=== PATIENT | male | born 1940 | race Caucasian/White ===

== ENCOUNTER 2016-07-16 08:19 | Outpatient (CLI) | payer MEDICARE, OTHER | END 2016-07-16 08:20 | disposition home or self-care (01) | DX: I10 Essential (primary) hypertension (principal); E78.2 Mixed hyperlipidemia; E03.9 Hypothyroidism, unspecified; Z79.899 Other long term (current) drug therapy; C61 Malignant neoplasm of prostate ==

== ENCOUNTER 2016-07-25 20:53 | Outpatient (CLI) | payer MEDICARE, OTHER | END 2016-07-25 20:54 | disposition home or self-care (01) | DX: D64.9 Anemia, unspecified (principal); R73.09 Other abnormal glucose ==

== ENCOUNTER 2016-08-29 08:06 | Outpatient (CLI) | payer MEDICARE, OTHER | END 2016-08-29 08:07 | disposition home or self-care (01) | DX: E03.9 Hypothyroidism, unspecified (principal); Z79.899 Other long term (current) drug therapy ==

== ENCOUNTER 2017-01-03 08:40 | Outpatient (CLI) | payer MEDICARE, OTHER ==
[2017-01-03 11:45] LABS: BASOPHILS # (AUTO) 0.1 10^3/uL (0.0-0.1); BASOPHILS % (AUTO) 0.9 %; EOSINOPHILS # (AUTO) 0.1 10^3/uL (0.0-0.7); EOSINOPHILS % (AUTO) 1.4 %; HCT - HEMATOCRIT 42.7 % (42.0-52.0); HGB - HEMOGLOBIN 14.3 g/dL (14.0-18.0); LYMPHOCYTES # (AUTO) 2.2 10^3/uL (1.5-3.5); LYMPHOCYTES % (AUTO) 21.4 %; MEAN CORPUSCULAR HEMOGLOBIN 31.6 pg (27.0-31.0); MEAN CORPUSCULAR HGB CONC 33.4 g/dL (32.0-36.0); MEAN CORPUSCULAR VOLUME 94.6 fL (80.0-94.0); MEAN PLATELET VOLUME 9.2 fL (7.4-11.4); MONOCYTES # (AUTO) 0.7 10^3/uL (0.0-1.0); NEUTROPHILS % (AUTO) 69.3 %; NUCLEATED RED BLOOD CELLS AUTO 0.1 /100WBC; RED BLOOD COUNT 4.51 10^6/uL (4.70-6.10); UNCORRECTED WHITE BLOOD COUNT 10.1 x10^3/uL; WHITE BLOOD COUNT 10.1 x10^3/uL (4.8-10.8)
== END 2017-01-03 08:41 | disposition home or self-care (01) ==
LOC: LAB.R 08:40
PROVIDERS: ATTEND Internal Medicine
DX: D64.9 Anemia, unspecified (principal)
CPT/HCPCS: 85025

== ENCOUNTER 2017-07-16 08:20 | Outpatient (CLI) | payer MEDICARE, OTHER ==
[2017-07-16 12:50] LABS: BASOPHILS # (AUTO) 0.1 10^3/uL (0.0-0.1); BASOPHILS % (AUTO) 0.8 %; EOSINOPHILS # (AUTO) 0.2 10^3/uL (0.0-0.7); EOSINOPHILS % (AUTO) 2.3 %; HGB - HEMOGLOBIN 14.3 g/dL (14.0-18.0); LYMPHOCYTES # (AUTO) 2.5 10^3/uL (1.5-3.5); LYMPHOCYTES % (AUTO) 24.8 %; MEAN CORPUSCULAR HEMOGLOBIN 31.9 pg (27.0-31.0); MEAN CORPUSCULAR HGB CONC 33.8 g/dL (32.0-36.0); MEAN CORPUSCULAR VOLUME 94.3 fL (80.0-94.0); MEAN PLATELET VOLUME 8.7 fL (7.4-11.4); MONOCYTES # (AUTO) 0.7 10^3/uL (0.0-1.0); MONOCYTES % (AUTO) 7.2 %; NEUTROPHILS # (AUTO) 6.6 10^3/uL (1.5-6.6); NEUTROPHILS % (AUTO) 64.9 %; PLT - PLATELET COUNT 230 10^3/uL (130-450); RED BLOOD COUNT 4.47 10^6/uL (4.70-6.10); WHITE BLOOD COUNT 10.1 x10^3/uL (4.8-10.8)
[2017-07-16 13:14] LABS: ALBUMIN 3.9 g/dL (3.2-5.5); ALBUMIN/GLOBULIN RATIO 1.4 (1.0-2.2); ALKALINE PHOSPHATASE 106 IU/L (42-121); ALT ALANINE AMINOTRANSFERASE 20 IU/L (10-60); AST ASPARTATE AMINOTRANSFERASE 22 IU/L (10-42); BILIRUBIN,TOTAL 0.6 mg/dL (0.2-1.0); BUN - BLOOD UREA NITROGEN 21 mg/dL (6-20); CARBON DIOXIDE - CO2 27 mmol/L (21-32); CHLORIDE 104 mmol/L (101-111); CHOL/HDL RATIO 3.2 (<5.0); CHOLESTEROL 119 mg/dL; CREATININE 1.1 mg/dL (0.6-1.2); GFR - MDRD 65 (>89); GLUCOSE 117 mg/dL (70-100); HDL CHOLESTEROL 37 mg/dL; LDL CHOLESTEROL,CALCULATED 72 mg/dL; LDL/HDL RATIO 1.9 (<3.6); SODIUM 138 mmol/L (135-145); TOTAL PROTEIN 6.7 g/dL (6.7-8.2); VLDL CHOLESTEROL 10 mg/dL
== END 2017-07-16 08:21 | disposition home or self-care (01) ==
LOC: LAB.R 08:20
PROVIDERS: ATTEND Internal Medicine
DX: Z12.5 Encounter for screening for malignant neoplasm of prostate (principal); E03.9 Hypothyroidism, unspecified; E78.5 Hyperlipidemia, unspecified; I10 Essential (primary) hypertension; I73.9 Peripheral vascular disease, unspecified; D64.9 Anemia, unspecified
CPT/HCPCS: 80053; 80061; 84443; 85025; G0103; 83721; 84153

== ENCOUNTER 2018-01-02 08:30 | Outpatient (CLI) | payer MEDICARE, OTHER ==
[2018-01-02 18:37] LABS: HB2 TOTAL 14.7 g/dL; HEMOGLOBIN A1C 0.53 g/dL; HEMOGLOBIN A1C % 5.4 % (4.6-6.2)
== END 2018-01-02 08:31 | disposition home or self-care (01) ==
LOC: LAB.R 08:30
PROVIDERS: ATTEND Internal Medicine
DX: R73.9 Hyperglycemia, unspecified (principal)
CPT/HCPCS: 82947; 83036

== ENCOUNTER 2018-01-12 11:05 | Outpatient (CLI) | payer MEDICARE, OTHER ==
[2018-01-12 14:50] LABS: CALCIUM 9.1 mg/dL (8.5-10.3)
== END 2018-01-12 11:06 | disposition home or self-care (01) ==
LOC: LAB.R 11:05
PROVIDERS: ATTEND Internal Medicine
DX: I10 Essential (primary) hypertension (principal)
CPT/HCPCS: 80048

== ENCOUNTER 2018-02-09 10:52 | Emergency (ER) | payer MEDICARE, OTHER ==
[2018-02-09] MEDS ORDERED: TETANUS/DIPHTHERIA/PERTUSSIS 0.5 ML SYRINGE IM ONE (11:23)
--- NOTE | 2018-02-09 12:20 | CT Report ---
Reason: fall off ladder, hit head, pt on xarelto Procedure Date: 02/09/2018 Accession Number: [id number] / [id number] Procedure: CT - Head W/O CPT Code: FULL RESULT: EXAM: CT HEAD EXAM DATE: 02/09/2018 11:58 AM. CLINICAL HISTORY: Fall off ladder, hit head, pt on xarelto. COMPARISON: None. TECHNIQUE: Multiaxial CT images were obtained from the foramen magnum to the vertex. Reformats: Sagittal and coronal. IV contrast: None. In accordance with CT protocol optimization, one or more of the following dose reduction techniques were utilized for this exam: automated exposure control, adjustment of mA and/or KV based on patient size, or use of iterative reconstructive technique. FINDINGS: Parenchyma: No intraparenchymal hemorrhage. No evidence of mass, midline shift, or CT findings of acute infarction. Stearns-white differentiation is distinct. Diffuse chronic microangiopathic white matter changes are evident. Extraaxial Spaces: Normal for age. No subdural or epidural collections identified. Ventricles: The ventricles and cortical sulci are enlarged, consistent with age-related tissue loss. Sinuses and orbits: Imaged paranasal sinuses, orbits, and mastoids show no significant abnormality. Bones: No evidence of fracture or calvarial defect. Other: None. IMPRESSION: Generalized age-related cortical atrophic changes without evidence of acute intracranial abnormality. [facility]
[2018-02-09] MEDS ORDERED: LIDOCAINE 2%-EPI 1:100000 20 ML MDV SUBQ STA (12:42)
--- NOTE | 2018-02-09 12:51 | XRAY Report ---
Reason: fall off ladder, L shoulder pain Procedure Date: 02/09/2018 Accession Number: [id number] / [id number] Procedure: XR - Shoulder 3 View LT CPT Code: FULL RESULT: EXAM: LEFT SHOULDER RADIOGRAPHY EXAM DATE: 02/09/2018 12:09 PM. CLINICAL HISTORY: Fall off ladder, L shoulder pain. COMPARISON: None. TECHNIQUE: 3 views. FINDINGS: Bones: Cardiac generator variably overlies the left proximal humerus, left lateral ribs, and portion of the left infraspinous scapula on the different projections. Within this limitation, no definite acute fracture is demonstrated. Joints: No dislocation or subluxation. There is mild joint space narrowing at the glenohumeral joint and moderate joint space narrowing at the acromioclavicular joint with spurring. Soft tissues: No focal soft tissue swelling is demonstrated. Visualized portions of the left upper lung are clear. IMPRESSION: 1. No acute fracture or malalignment. 2. 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 RADIA
[2018-02-09] MEDS ORDERED: BACITRACIN OINT TOP ONE (13:05)
[2018-02-09] MEDS ORDERED: oxyCODONE 5 MG TABLET PO STA (13:08)
--- NOTE | 2018-02-09 13:10 | ED Physician Documentation ---
History of Present Illness - Stated complaint Stated Complaint: GLF/HEAD LAC - Chief complaint Chief Complaint: Laceration - History obtained from History obtained from: Patient - History of Present Illness Timing: Today Pain level max: 6 Pain level now: 5 Improved by: rest Worsened by: movement - Additonal information Additional information: Patient is a 77-year-old male who was up on a ladder today cleaning his gutters when he slipped and fell, striking his head. He is on Xarelto. He also complains of left shoulder pain. No loss of consciousness. No vomiting. No neck or back pain. No numbness or tingling. Review of Systems Ten Systems: 10 systems reviewed and negative Constitutional: denies: Fever, Chills Ears: denies: Drainage/discharge Nose: denies: Rhinorrhea / runny nose, Congestion Throat: denies: Sore throat Cardiac: denies: Chest pain / pressure Respiratory: denies: Dyspnea GI: denies: Abdominal Pain, Nausea, Vomiting, Diarrhea, Hematemesis : denies: Dysuria Skin: denies: Rash Musculoskeletal: reports: Extremity pain (L shoulder pain). denies: Neck pain, Back pain Neurologic: reports: Head injury (forehead laceration). denies: Focal weakness, Numbness, Confused, Altered mental status, LOC PD PAST MEDICAL HISTORY - Past Medical History Past Medical History: Yes Cardiovascular: Hypertension - Past Surgical History Past Surgical History: Yes - Present Medications Home Medications: Ambulatory Orders Medication Instructions Recorded Confirmed Ascorbic Acid [Vitamin C] 02/09/18 Atorvastatin Calcium 20 mg PO DAILY 02/09/18 02/09/18 Glucosamine Sulfate Dipot Chlr 02/09/18 [Glucosamine Sulfate] Levothyroxine [Synthroid] 50 mcg PO DAILY 02/09/18 02/09/18 Lisinopril 5 mg PO DAILY 02/09/18 02/09/18 Multivitamin [Multiple Vitamins] 02/09/18 Oxycodone HCl/Acetaminophen 1 - 2 each PO Q6H PRN #10 tablet 02/09/18 [Percocet 5-325 mg Tablet] Rivaroxaban [Xarelto] 20 mg PO DAILY 02/09/18 02/09/18 - Allergies Allergies/Adverse Reactions: Allergies Allergy/AdvReac Type Severity Reaction Status Date / Time No Known Drug Allergies Allergy Verified 02/09/18 11:03 - Living Situation Living Situation: reports: With family Living Arrangement: reports: At home - Social History Does the pt have substance abuse?: No - Family History Family history: reports: Non contributory - Immunizations Immunizations are current?: No PD ED PE NORMAL - Vitals Vital signs reviewed: Yes - General General: Alert and oriented X 3, No acute distress, Well developed/nourished - HEENT HEENT: PERRL, Ears normal, Moist mucous membranes, Pharynx benign, Other (stellate forehead laceration, 6cm, irregular. galea intact. ) - Neck Neck: Supple, no meningeal sign, No bony TTP (No step-off or deformity) - Cardiac Cardiac: RRR - Respiratory Respiratory: No respiratory distress, Clear bilaterally - Abdomen Abdomen: Soft, Non tender, Non distended - Back Back: No spinal TTP - Derm Derm: Warm and dry - Extremities Extremities: No deformity, Other (TTP over the L shoulder, FROM, but with pain. NVI including axillary nerve.) - Neuro Neuro: Alert and oriented X 3 - Psych Psych: Normal mood, Normal affect Results - Vitals Vitals: Vital Signs - 24 hr 02/09/18 10:57 Temperature 36.2 C L Heart Rate 66 Respiratory 16 Rate Blood Pressure 191/82 H O2 Saturation 98 Oxygen O2 Source Room air - Rads (name of study) Head CT Radiology: Prelim report reviewed, EMP read contemporaneously, See rad report (No acute intracranial abnormality) Left shoulder x-ray Radiology: Prelim report reviewed, EMP read contemporaneously, See rad report (No acute abnormality) Procedures - Laceration (location) Forehead Length in cm: 6 Wound type: Stellate, Irregular, Into muscle, Clean Neurovascular status: Sensory intact, Motor intact, Vascular intact Anesthesia: Lidocaine 2% with epi Wound Preparation: Irrigated copiously NS, Wound explored, To the base. No: FB identified, FB removed Skin layer closure: Nylon, Interrupted, Size #-0 - enter number (4) Other: Patient tolerated well, No complications, Neurovascular intact, Dressing applied, Tetanus booster given (Tdap) Complexity: Simple PD MEDICAL DECISION MAKING - ED course Complexity details: reviewed results, re-evaluated patient, considered differential, d/w patient ED course: Patient is a 77-year-old male who fell off of a ladder today striking his head. Has a forehead laceration was repaired. No acute findings on head CT. Warnings of infection and instructions on wound care given at bedside. Also counseled on how to minimize scarring. No acute findings on left shoulder x- ray. Will place on pain medication for home and follow-up closely with his doctor. Patient counseled regarding signs and symptoms for which I believe and urgent re-evaluation would be necessary. Patient with good understanding of and agreement to plan and is comfortable going home at this time This document was made in part using voice recognition software. While efforts are made to proofread this document, sound alike and grammatical errors may occur. Departure - Departure Disposition: Home, Self Care Clinical Impression: Forehead laceration Qualifiers: Encounter type: initial encounter Qualified Code(s): S01.81XA - Laceration without foreign body of other part of head, initial encounter Head injury Qualifiers: Encounter type: initial encounter Qualified Code(s): S09.90XA - Unspecified injury of head, initial encounter Left shoulder strain Qualifiers: Encounter type: initial encounter Qualified Code(s): S46.912A - Strain of unspe cified muscle, fascia and tendon at shoulder and upper arm level, left arm, initial encounter Condition: Good Instructions: ED Head Injury Closed, ED Laceration Facial Sutr Tape Follow-Up: Frederick Lester MD [Primary Care Provider] - Within 1 week Prescriptions: Oxycodone HCl/Acetaminophen [Percocet 5-325 mg Tablet] 1 - 2 each PO Q6H PRN #10 tablet PRN Reason: pain Comments: Keep the wound clean. Return if you worsen. The sutures should be removed in about 10-14 days with your doctor. Return for redness, swelling or drainage from the wound. Do not drink alcohol or drive while on narcotic pain medicine. Note that many narcotic pain relievers also contain tylenol/acetaminophen. Please ensure that your total dose of acetaminophen from all sources does not exceed 3 grams (3000mg) per day. You may constipated on this medication, take a stool softener such as "Colace" twice a day while you are on it. Also recommend a lyxo-les-ohycjcw laxative such as senna or MiraLAX any day that you do not have a bowel movement. If you received narcotic pain medication in the emergency department, do not drive or operate machinery for the next 24 hours. Discharge Date/Time: 02/09/18 13:25
[2018-02-09 13:24] VITALS: BP 170/80
== END 2018-02-09 13:25 | disposition home or self-care (01) ==
LOC: ED 10:52
DX: S01.81XA Laceration without foreign body of other part of head, initial encounter (principal); S09.90XA Unspecified injury of head, initial encounter; S46.912A Strain of unspecified muscle, fascia and tendon at shoulder and upper arm level, left arm, initial encounter; W11.XXXA Fall on and from ladder, initial encounter; Y93.H9 Activity, other involving exterior property and land maintenance, building and construction; Y92.007 Garden or yard of unspecified non-institutional (private) residence as the place of occurrence of the external cause; Z23 Encounter for immunization; I10 Essential (primary) hypertension; Z79.01 Long term (current) use of anticoagulants
CPT/HCPCS: 70450; 99283

== ENCOUNTER 2018-02-09 15:16 | Emergency (ER) | payer MEDICARE, OTHER ==
[2018-02-09 15:24] VITALS: BP 155/74
--- NOTE | 2018-02-09 15:40 | ED Physician Documentation ---
History of Present Illness - Stated complaint Stated Complaint: FOREHEAD LAC - Chief complaint Chief Complaint: General - History obtained from History obtained from: Patient - History of Present Illness Timing: Today Pain level max: 5 Pain level now: 0 - Additonal information Additional information: Patient seen here earlier today after a fall off of a ladder. Has a forehead laceration that is still slightly oozing blood. Review of Systems Neurologic: denies: Syncope PD PAST MEDICAL HISTORY - Past Surgical History Past Surgical History: Yes - Present Medications Home Medications: Ambulatory Orders Medication Instructions Recorded Confirmed Ascorbic Acid [Vitamin C] 02/09/18 Atorvastatin Calcium 20 mg PO DAILY 02/09/18 02/09/18 Glucosamine Sulfate Dipot Chlr 02/09/18 [Glucosamine Sulfate] Levothyroxine [Synthroid] 50 mcg PO DAILY 02/09/18 02/09/18 Lisinopril 5 mg PO DAILY 02/09/18 02/09/18 Multivitamin [Multiple Vitamins] 02/09/18 Oxycodone HCl/Acetaminophen 1 - 2 each PO Q6H PRN #10 tablet 02/09/18 [Percocet 5-325 mg Tablet] Rivaroxaban [Xarelto] 20 mg PO DAILY 02/09/18 02/09/18 - Allergies Allergies/Adverse Reactions: Allergies Allergy/AdvReac Type Severity Reaction Status Date / Time No Known Drug Allergies Allergy Verified 02/09/18 11:03 - Social History Does the pt smoke?: No Smoking Status: Never smoker Does the pt drink ETOH?: No Does the pt have substance abuse?: No - Immunizations Immunizations: TDAP >10years/unknown PD ED PE NORMAL - Vitals Vital signs reviewed: Yes - General General: Alert and oriented X 3, No acute distress - HEENT HEENT: Other (Slight use from the forehead laceration) - Derm Derm: Warm and dry - Neuro Neuro: Alert and oriented X 3 Results - Vitals Vitals: Vital Signs - 24 hr 02/09/18 15:22 Temperature 36.7 C Heart Rate 66 Respiratory 16 Rate Blood Pressure 155/74 H O2 Saturation 99 Oxygen O2 Source Room air PD MEDICAL DECISION MAKING - ED course Complexity details: considered differential, d/w patient ED course: A new dressing was applied with Coban to hold pressure. Appears to have a slight is from the Xarelto he is taking. We will continue the course of treatment as previously described in today's earlier note. This document was made in part using voice recognition software. While efforts are made to proofread this document, sound alike and grammatical errors may occur. Departure - Departure Disposition: 01 Home, Self Care Clinical Impression: Forehead laceration Qualifiers: Encounter type: initial encounter Qualified Code(s): S01.81XA - Laceration without foreign body of other part of head, initial encounter Condition: Good Comments: Follow the instructions from your prior visit. You can remove the dressing after 4-6 hours today.
== END 2018-02-09 15:46 | disposition home or self-care (01) ==
LOC: ED 15:16
DX: S01.81XA Laceration without foreign body of other part of head, initial encounter (principal); S09.90XA Unspecified injury of head, initial encounter; S46.912A Strain of unspecified muscle, fascia and tendon at shoulder and upper arm level, left arm, initial encounter; W11.XXXA Fall on and from ladder, initial encounter; Y93.H9 Activity, other involving exterior property and land maintenance, building and construction; Y92.007 Garden or yard of unspecified non-institutional (private) residence as the place of occurrence of the external cause; Z23 Encounter for immunization; I10 Essential (primary) hypertension; Z79.01 Long term (current) use of anticoagulants
CPT/HCPCS: 12014; 70450; 73030; 90471; 90715; 99283; A9270

== ENCOUNTER 2018-07-09 08:49 | Outpatient (CLI) | payer MEDICARE, OTHER ==
[2018-07-09 09:24] LABS: ALBUMIN/GLOBULIN RATIO 1.3 (1.0-2.2); ALKALINE PHOSPHATASE 105 IU/L (42-121); ALT ALANINE AMINOTRANSFERASE 18 IU/L (10-60); AST ASPARTATE AMINOTRANSFERASE 22 IU/L (10-42); BILIRUBIN,TOTAL 1.3 mg/dL (0.2-1.0); BUN - BLOOD UREA NITROGEN 24 mg/dL (6-20); CALCIUM 8.9 mg/dL (8.5-10.3); CARBON DIOXIDE - CO2 28 mmol/L (21-32); CHLORIDE 99 mmol/L (101-111); CHOL/HDL RATIO 3.5 (<5.0); CHOLESTEROL 128 mg/dL; CREATININE 1.1 mg/dL (0.6-1.2); GFR - MDRD 65 (>89); GLUCOSE 132 mg/dL (70-100); HDL CHOLESTEROL 37 mg/dL; LDL CHOLESTEROL,CALCULATED 76 mg/dL; LDL/HDL RATIO 2.1 (<3.6); SODIUM 135 mmol/L (135-145); TOTAL PROTEIN 7.2 g/dL (6.7-8.2); VLDL CHOLESTEROL 15 mg/dL
[2018-07-09 10:00] LABS: PSA TOTAL < 0.008 ng/mL (0.000-2.000)
[2018-07-09 10:25] LABS: HB2 TOTAL 15.2 g/dL; HEMOGLOBIN A1C 0.58 g/dL; HEMOGLOBIN A1C % 5.6 % (4.6-6.2)
== END 2018-07-09 08:50 | disposition home or self-care (01) ==
LOC: LAB 08:49
PROVIDERS: ATTEND Internal Medicine
DX: E78.5 Hyperlipidemia, unspecified (principal); R73.9 Hyperglycemia, unspecified; C61 Malignant neoplasm of prostate; E03.9 Hypothyroidism, unspecified
CPT/HCPCS: 36415; 80053; 80061; 83036; 83721; 84153; 84154; 84443

== ENCOUNTER 2020-04-25 11:31 | Outpatient (CLI) | payer MEDICARE, OTHER ==
[2020-04-25 18:07] LABS: BASOPHILS # (AUTO) 0.1 10^3/uL (0.0-0.1); BASOPHILS % (AUTO) 0.7 %; EOSINOPHILS # (AUTO) 0.2 10^3/uL (0.0-0.7); EOSINOPHILS % (AUTO) 1.7 %; HCT - HEMATOCRIT 44.4 % (42.0-52.0); HGB - HEMOGLOBIN 14.1 g/dL (14.0-18.0); LYMPHOCYTES # (AUTO) 2.5 10^3/uL (1.5-3.5); LYMPHOCYTES % (AUTO) 26.6 %; MEAN CORPUSCULAR HEMOGLOBIN 31.4 pg (27.0-31.0); MEAN CORPUSCULAR HGB CONC 31.8 g/dL (32.0-36.0); MEAN CORPUSCULAR VOLUME 98.9 fL (80.0-94.0); MEAN PLATELET VOLUME 10.5 fL (7.4-11.4); MONOCYTES # (AUTO) 0.6 10^3/uL (0.0-1.0); MONOCYTES % (AUTO) 6.1 %; NEUTROPHILS # (AUTO) 6.1 10^3/uL (1.5-6.6); NEUTROPHILS % (AUTO) 64.7 %; PLT - PLATELET COUNT 247 10^3/uL (130-450); RED BLOOD COUNT 4.49 10^6/uL (4.70-6.10); RED CELL DISTRIBUTION WIDTH 12.5 % (12.0-15.0); WHITE BLOOD COUNT 9.4 x10^3/uL (4.8-10.8)
[2020-04-25 18:19] LABS: ALBUMIN 4.2 g/dL (3.2-5.5); ALBUMIN/GLOBULIN RATIO 1.4 (1.0-2.2); ALKALINE PHOSPHATASE 95 IU/L (42-121); ALT ALANINE AMINOTRANSFERASE 21 IU/L (10-60); AST ASPARTATE AMINOTRANSFERASE 19 IU/L (10-42); BILIRUBIN,TOTAL 0.8 mg/dL (0.2-1.0); BUN - BLOOD UREA NITROGEN 20 mg/dL (6-20); CALCIUM 9.7 mg/dL (8.5-10.3); CARBON DIOXIDE - CO2 29 mmol/L (21-32); CHLORIDE 104 mmol/L (101-111); CHOL/HDL RATIO 3.4 (<5.0); CHOLESTEROL 129 mg/dL; CREATININE 1.1 mg/dL (0.6-1.2); GFR - MDRD 65 (>89); GLUCOSE 100 mg/dL (70-100); HDL CHOLESTEROL 38 mg/dL; LDL CHOLESTEROL,CALCULATED 73 mg/dL; LDL/HDL RATIO 1.9 (<3.6); POTASSIUM 4.6 mmol/L (3.5-5.0); SODIUM 142 mmol/L (135-145); TOTAL PROTEIN 7.2 g/dL (6.7-8.2); TRIGLYCERIDES 91 mg/dL; VLDL CHOLESTEROL 18 mg/dL
[2020-04-25 18:30] LABS: THYROID STIMULATING HORMONE 3.48 uIU/mL (0.34-5.60)
[2020-04-25 18:32] LABS: FREE T3 3.18 pg/mL (2.5-3.9)
[2020-04-25 18:33] LABS: FREE T4 (FREE THYROXINE) 1.19 ng/dL (0.58-1.64)
[2020-04-25 19:19] LABS: ESTIMATED AVERAGE GLUCOSE 123 mg/dL (70-100); HEMOGLOBIN A1c% 5.9 % (4.27-6.07)
== END 2020-04-25 23:59 | disposition home or self-care (01) ==
LOC: LAB.WCP 11:31
PROVIDERS: ATTEND Family Medicine
DX: I48.0 Paroxysmal atrial fibrillation (principal); R73.01 Impaired fasting glucose; E03.9 Hypothyroidism, unspecified; J44.9 Chronic obstructive pulmonary disease, unspecified; E78.5 Hyperlipidemia, unspecified; I10 Essential (primary) hypertension; F17.200 Nicotine dependence, unspecified, uncomplicated; I73.9 Peripheral vascular disease, unspecified
CPT/HCPCS: 36415; 80053; 80061; 83036; 83721; 84439; 84443; 84481; 85025

== ENCOUNTER 2020-11-08 11:47 | Outpatient (CLI) | payer MEDICARE, OTHER ==
[2020-11-08 18:00] LABS: BASOPHILS # (AUTO) 0.1 10^3/uL (0.0-0.1); BASOPHILS % (AUTO) 0.6 %; EOSINOPHILS # (AUTO) 0.2 10^3/uL (0.0-0.7); EOSINOPHILS % (AUTO) 1.7 %; HCT - HEMATOCRIT 45.4 % (42.0-52.0); LYMPHOCYTES # (AUTO) 2.6 10^3/uL (1.5-3.5); LYMPHOCYTES % (AUTO) 27.2 %; MEAN CORPUSCULAR HEMOGLOBIN 32.3 pg (27.0-31.0); MEAN CORPUSCULAR VOLUME 97.8 fL (80.0-94.0); MEAN PLATELET VOLUME 10.6 fL (7.4-11.4); MONOCYTES # (AUTO) 0.7 10^3/uL (0.0-1.0); MONOCYTES % (AUTO) 6.9 %; NEUTROPHILS # (AUTO) 6.1 10^3/uL (1.5-6.6); NEUTROPHILS % (AUTO) 63.4 %; PLT - PLATELET COUNT 248 10^3/uL (130-450); RED BLOOD COUNT 4.64 10^6/uL (4.70-6.10); RED CELL DISTRIBUTION WIDTH 12.5 % (12.0-15.0); WHITE BLOOD COUNT 9.6 x10^3/uL (4.8-10.8)
[2020-11-08 18:12] LABS: ALBUMIN 4.3 g/dL (3.2-5.5); ALBUMIN/GLOBULIN RATIO 1.3 (1.0-2.2); BILIRUBIN,TOTAL 1.3 mg/dL (0.2-1.0); CALCIUM 9.5 mg/dL (8.5-10.3); CREATININE 1.1 mg/dL (0.6-1.2); POTASSIUM 4.8 mmol/L (3.5-5.0); TOTAL PROTEIN 7.5 g/dL (6.7-8.2)
[2020-11-08 18:24] LABS: THYROID STIMULATING HORMONE 3.31 uIU/mL (0.34-5.60)
[2020-11-08 19:54] LABS: ESTIMATED AVERAGE GLUCOSE 117 mg/dL (70-100); HEMOGLOBIN A1c% 5.7 % (4.27-6.07)
== END 2020-11-08 23:59 | disposition home or self-care (01) ==
LOC: LAB.WCP 11:47
PROVIDERS: ATTEND Family Medicine
DX: R73.9 Hyperglycemia, unspecified (principal); R63.4 Abnormal weight loss
CPT/HCPCS: 36415; 80053; 83036; 84443; 85025

== ENCOUNTER 2021-06-30 11:05 | Outpatient (CLI) | payer MEDICARE, OTHER ==
--- NOTE | 2021-06-30 13:50 | CT Report ---
PROCEDURE: HEAD WO INDICATIONS: TREMOR, DOUBLE VISION TECHNIQUE: Noncontrast 4.5 mm thick angled axial sections acquired from the foramen magnum to the vertex. For r adiation dose reduction, the following was used: automated exposure control, adjustment of mA and/or kV according to patient size. COMPARISON: None. FINDINGS: Image quality: Excellent. CSF spaces: Basal cisterns are patent. No extra-axial fluid collections. Ventricles are normal in size and shape. Brain: No midline shift. No intracranial masses or hemorrhage. Age-related volume loss and small v essel ischemic change. Stearns-white matter interface is normal. Skull and face: Calvarium and visualized facial bones are intact, without suspicious lesions. Sinuses: Dependent soft tissue in the left maxillary sinus. There is also mucosal thickening present in the right sphenoid sinus. There is patchy ethmoid disease. IMPRESSION: 1. No evidence acute stroke, hemorrhage, or mass. 2. Age-related changes. 3. Sinus disease, mostly chronic. Reviewed by: Jayme Garrett MD on 06/30/2021 12:49 PM [facility] Approved by: Jayme Garrett MD on 06/30/2021 12:49 PM [facility] Station ID: [id number]
== END 2021-06-30 11:06 | disposition home or self-care (01) ==
LOC: DI 11:05
PROVIDERS: ATTEND Family Medicine
DX: R25.1 Tremor, unspecified (principal); R27.9 Unspecified lack of coordination; H53.2 Diplopia; J32.0 Chronic maxillary sinusitis; J32.3 Chronic sphenoidal sinusitis; J32.2 Chronic ethmoidal sinusitis

== ENCOUNTER 2021-09-25 11:57 | Outpatient (CLI) | payer MEDICARE, OTHER ==
[2021-09-25 17:43] LABS: BASOPHILS # (AUTO) 0.1 10^3/uL (0.0-0.1); BASOPHILS % (AUTO) 0.6 %; EOSINOPHILS # (AUTO) 0.2 10^3/uL (0.0-0.7); EOSINOPHILS % (AUTO) 1.7 %; HCT - HEMATOCRIT 44.5 % (42.0-52.0); HGB - HEMOGLOBIN 14.6 g/dL (14.0-18.0); LYMPHOCYTES # (AUTO) 2.7 10^3/uL (1.5-3.5); LYMPHOCYTES % (AUTO) 28.9 %; MEAN CORPUSCULAR HEMOGLOBIN 31.6 pg (27.0-31.0); MEAN CORPUSCULAR HGB CONC 32.8 g/dL (32.0-36.0); MEAN CORPUSCULAR VOLUME 96.3 fL (80.0-94.0); MEAN PLATELET VOLUME 10.7 fL (7.4-11.4); MONOCYTES # (AUTO) 0.7 10^3/uL (0.0-1.0); MONOCYTES % (AUTO) 7.5 %; NEUTROPHILS # (AUTO) 5.7 10^3/uL (1.5-6.6); NEUTROPHILS % (AUTO) 61.1 %; PLT - PLATELET COUNT 233 10^3/uL (130-450); RED BLOOD COUNT 4.62 10^6/uL (4.70-6.10); RED CELL DISTRIBUTION WIDTH 12.2 % (12.0-15.0); WHITE BLOOD COUNT 9.4 x10^3/uL (4.8-10.8)
[2021-09-25 18:05] LABS: ALBUMIN 4.1 g/dL (3.2-5.5); ALBUMIN/GLOBULIN RATIO 1.2 (1.0-2.2); ALKALINE PHOSPHATASE 93 IU/L (42-121); ALT ALANINE AMINOTRANSFERASE 25 IU/L (10-60); AST ASPARTATE AMINOTRANSFERASE 25 IU/L (10-42); BILIRUBIN,TOTAL 1.5 mg/dL (0.2-1.0); BUN - BLOOD UREA NITROGEN 28 mg/dL (6-20); CALCIUM 9.8 mg/dL (8.5-10.3); CARBON DIOXIDE - CO2 29 mmol/L (21-32); CHLORIDE 102 mmol/L (101-111); CHOL/HDL RATIO 3.3 (<5.0); CHOLESTEROL 139 mg/dL; CREATININE 1.3 mg/dL (0.6-1.2); GFR - MDRD 53 (>89); GLUCOSE 113 mg/dL (70-100); HDL CHOLESTEROL 42 mg/dL; LDL CHOLESTEROL,CALCULATED 84 mg/dL; POTASSIUM 4.7 mmol/L (3.5-5.0); SODIUM 139 mmol/L (135-145); TOTAL PROTEIN 7.4 g/dL (6.7-8.2); TRIGLYCERIDES 66 mg/dL; VLDL CHOLESTEROL 13 mg/dL
[2021-09-25 18:13] LABS: THYROID STIMULATING HORMONE 5.28 uIU/mL (0.34-5.60)
== END 2021-09-25 11:58 | disposition home or self-care (01) ==
LOC: LAB.N 11:57
PROVIDERS: ATTEND Family Medicine
DX: I10 Essential (primary) hypertension (principal); R25.1 Tremor, unspecified; R26.81 Unsteadiness on feet; H53.2 Diplopia; R73.9 Hyperglycemia, unspecified; I48.0 Paroxysmal atrial fibrillation; E03.9 Hypothyroidism, unspecified
CPT/HCPCS: 36415; 80053; 80061; 83721; 84443; 85025

== ENCOUNTER 2022-04-02 12:04 | Outpatient (CLI) | payer MEDICARE, OTHER ==
[2022-04-02 18:08] LABS: BASOPHILS # (AUTO) 0.1 10^3/uL (0.0-0.1); BASOPHILS % (AUTO) 0.7 %; EOSINOPHILS # (AUTO) 0.2 10^3/uL (0.0-0.7); HCT - HEMATOCRIT 45.5 % (42.0-52.0); HGB - HEMOGLOBIN 14.4 g/dL (14.0-18.0); LYMPHOCYTES % (AUTO) 25.1 %; MEAN CORPUSCULAR HEMOGLOBIN 30.6 pg (27.0-31.0); MEAN CORPUSCULAR HGB CONC 31.6 g/dL (32.0-36.0); MEAN CORPUSCULAR VOLUME 96.6 fL (80.0-94.0); MEAN PLATELET VOLUME 10.9 fL (7.4-11.4); MONOCYTES # (AUTO) 0.6 10^3/uL (0.0-1.0); MONOCYTES % (AUTO) 7.7 %; NEUTROPHILS # (AUTO) 5.2 10^3/uL (1.5-6.6); NEUTROPHILS % (AUTO) 64.3 %; PLT - PLATELET COUNT 240 10^3/uL (130-450); RED BLOOD COUNT 4.71 10^6/uL (4.70-6.10); RED CELL DISTRIBUTION WIDTH 12.1 % (12.0-15.0); WHITE BLOOD COUNT 8.1 x10^3/uL (4.8-10.8)
[2022-04-02 18:16] LABS: ALBUMIN 3.9 g/dL (3.2-5.5); ALBUMIN/GLOBULIN RATIO 1.1 (1.0-2.2); ALKALINE PHOSPHATASE 108 IU/L (42-121); ALT ALANINE AMINOTRANSFERASE 21 IU/L (10-60); AST ASPARTATE AMINOTRANSFERASE 23 IU/L (10-42); BILIRUBIN,TOTAL 1.3 mg/dL (0.2-1.0); BUN - BLOOD UREA NITROGEN 19 mg/dL (6-20); CALCIUM 9.7 mg/dL (8.5-10.3); CARBON DIOXIDE - CO2 32 mmol/L (21-32); CHLORIDE 101 mmol/L (101-111); CHOLESTEROL 121 mg/dL; CREATININE 1.2 mg/dL (0.6-1.2); GFR - MDRD 58 (>89); GLUCOSE 110 mg/dL (70-100); HDL CHOLESTEROL 41 mg/dL; LDL CHOLESTEROL,CALCULATED 69 mg/dL; LDL/HDL RATIO 1.7 (<3.6); SODIUM 140 mmol/L (135-145); TOTAL PROTEIN 7.6 g/dL (6.7-8.2); TRIGLYCERIDES 56 mg/dL; VLDL CHOLESTEROL 11 mg/dL
[2022-04-02 18:26] LABS: THYROID STIMULATING HORMONE 5.13 uIU/mL (0.34-5.60)
[2022-04-02 19:55] LABS: ESTIMATED AVERAGE GLUCOSE 114 mg/dL (70-100); HEMOGLOBIN A1c% 5.6 % (4.27-6.07)
== END 2022-04-02 12:05 | disposition home or self-care (01) ==
LOC: LAB.N 12:04
PROVIDERS: ATTEND Family Medicine
DX: I10 Essential (primary) hypertension (principal); I49.5 Sick sinus syndrome; R73.9 Hyperglycemia, unspecified; I48.0 Paroxysmal atrial fibrillation; E03.9 Hypothyroidism, unspecified; J44.9 Chronic obstructive pulmonary disease, unspecified; G25.0 Essential tremor; E78.5 Hyperlipidemia, unspecified; F17.200 Nicotine dependence, unspecified, uncomplicated
CPT/HCPCS: 36415; 80053; 80061; 83036; 83721; 84443; 85025

== ENCOUNTER 2023-03-28 12:58 | Outpatient (CLI) | payer MEDICARE, OTHER ==
[2023-03-28 18:01] LABS: BASOPHILS # (AUTO) 0.1 10^3/uL (0.0-0.1); BASOPHILS % (AUTO) 0.7 %; EOSINOPHILS # (AUTO) 0.1 10^3/uL (0.0-0.7); EOSINOPHILS % (AUTO) 0.6 %; HCT - HEMATOCRIT 39.8 % (42.0-52.0); HGB - HEMOGLOBIN 12.5 g/dL (14.0-18.0); LYMPHOCYTES # (AUTO) 1.8 10^3/uL (1.5-3.5); LYMPHOCYTES % (AUTO) 21.7 %; MEAN CORPUSCULAR HEMOGLOBIN 31.1 pg (27.0-31.0); MEAN CORPUSCULAR HGB CONC 31.4 g/dL (32.0-36.0); MEAN PLATELET VOLUME 11.1 fL (7.4-11.4); MONOCYTES # (AUTO) 0.6 10^3/uL (0.0-1.0); MONOCYTES % (AUTO) 6.5 %; NEUTROPHILS % (AUTO) 70.4 %; PLT - PLATELET COUNT 210 10^3/uL (130-450); RED BLOOD COUNT 4.02 10^6/uL (4.70-6.10); RED CELL DISTRIBUTION WIDTH 12.5 % (12.0-15.0); WHITE BLOOD COUNT 8.5 x10^3/uL (4.8-10.8)
[2023-03-28 18:04] LABS: SLIDE REVIEW? Indicated
[2023-03-28 18:13] LABS: ALBUMIN 4.1 g/dL (3.2-5.5); CHOL/HDL RATIO 3.6 (<5.0); CHOLESTEROL 140 mg/dL; ESTIMATED AVERAGE GLUCOSE 111 mg/dL (70-100); HDL CHOLESTEROL 39 mg/dL; HEMOGLOBIN A1c% 5.5 % (4.27-6.07); LDL CHOLESTEROL,CALCULATED 83 mg/dL; LDL/HDL RATIO 2.1 (<3.6); TRIGLYCERIDES 91 mg/dL (48-352); VLDL CHOLESTEROL 18 mg/dL
[2023-03-28 18:21] LABS: POTASSIUM 4.7 mmol/L (3.5-4.5)
[2023-03-28 18:24] LABS: ALBUMIN/GLOBULIN RATIO 1.7 (1.0-2.2); ALKALINE PHOSPHATASE 94 IU/L (42-121); ALT ALANINE AMINOTRANSFERASE 9 IU/L (10-60); AST ASPARTATE AMINOTRANSFERASE 16 IU/L (10-42); BILIRUBIN,TOTAL 0.8 mg/dL (0.2-1.0); BUN - BLOOD UREA NITROGEN 25 mg/dL (6-20); CALCIUM 9.6 mg/dL (8.5-10.3); CARBON DIOXIDE - CO2 29 mmol/L (21-32); CHLORIDE 108 mmol/L (101-111); GFR - MDRD 72 (>89); GLUCOSE 109 mg/dL (74-104); SODIUM 143 mmol/L (135-145); THYROID STIMULATING HORMONE 5.39 uIU/mL (0.34-5.60); TOTAL PROTEIN 6.5 g/dL (6.4-8.9)
[2023-03-28 19:04] LABS: RBC MORPHOLOGY (MULTIPLE) NORMAL APPEARANCE (NORMAL)
[2023-03-28 19:05] LABS: PLATELET ESTIMATE, MANUAL NORMAL (130-450,000) (NORMAL); PLATELET MORPHOLOGY 1+ GIANT PLATELETS (NORMAL)
== END 2023-03-28 12:59 | disposition home or self-care (01) ==
LOC: LAB.N 12:58
PROVIDERS: ATTEND Family Medicine
DX: E03.9 Hypothyroidism, unspecified (principal); H50.332 Intermittent monocular exotropia, left eye; R26.81 Unsteadiness on feet; H53.2 Diplopia; R73.9 Hyperglycemia, unspecified
CPT/HCPCS: 36415; 80053; 80061; 83036; 83721; 84443; 85025

== ENCOUNTER 2023-05-04 13:19 | Outpatient (CLI) | payer MEDICARE, OTHER | END 2023-05-04 23:59 | disposition left against medical advice (07) | LOC: EMS 13:19 | DX: S00.81XA Abrasion of other part of head, initial encounter (principal); W18.39XA Other fall on same level, initial encounter; Y92.008 Other place in unspecified non-institutional (private) residence as the place of occurrence of the external cause; Z79.01 Long term (current) use of anticoagulants ==

== ENCOUNTER 2023-06-26 14:47 | Outpatient (CLI) | payer MEDICARE, OTHER ==
[2023-06-26 15:12] LABS: BASOPHILS # (AUTO) 0.1 10^3/uL (0.0-0.1); BASOPHILS % (AUTO) 0.8 %; EOSINOPHILS # (AUTO) 0.1 10^3/uL (0.0-0.7); EOSINOPHILS % (AUTO) 0.9 %; HCT - HEMATOCRIT 38.6 % (42.0-52.0); HGB - HEMOGLOBIN 12.5 g/dL (14.0-18.0); LYMPHOCYTES # (AUTO) 1.9 10^3/uL (1.5-3.5); LYMPHOCYTES % (AUTO) 21.5 %; MEAN CORPUSCULAR HEMOGLOBIN 31.7 pg (27.0-31.0); MEAN CORPUSCULAR HGB CONC 32.4 g/dL (32.0-36.0); MEAN PLATELET VOLUME 9.5 fL (7.4-11.4); MONOCYTES # (AUTO) 0.6 10^3/uL (0.0-1.0); MONOCYTES % (AUTO) 7.4 %; NEUTROPHILS % (AUTO) 69.1 %; PLT - PLATELET COUNT 286 10^3/uL (130-450); RED BLOOD COUNT 3.94 10^6/uL (4.70-6.10); RED CELL DISTRIBUTION WIDTH 12.6 % (12.0-15.0); WHITE BLOOD COUNT 8.7 x10^3/uL (4.8-10.8)
[2023-06-26 16:06] LABS: THYROID STIMULATING HORMONE 7.23 uIU/mL (0.34-5.60)
[2023-06-26 16:10] LABS: CALCIUM 9.5 mg/dL (8.5-10.3); CREATININE 1.1 mg/dL (0.6-1.3); POTASSIUM 4.8 mmol/L (3.5-4.5)
[2023-06-26 21:11] LABS: ESTIMATED AVERAGE GLUCOSE 97 mg/dL (70-100)
== END 2023-06-26 14:48 | disposition home or self-care (01) ==
LOC: LAB 14:47
PROVIDERS: ATTEND Family Medicine
DX: I10 Essential (primary) hypertension (principal); D64.9 Anemia, unspecified; R25.1 Tremor, unspecified; E03.9 Hypothyroidism, unspecified
CPT/HCPCS: 36415; 80048; 83036; 84439; 84443; 84481; 85025

== ENCOUNTER 2023-08-11 10:47 | Outpatient (CLI) | payer MEDICARE, OTHER | END 2023-08-11 23:59 | disposition critical access hospital (66) | LOC: EMS 10:47 | DX: S01.301A Unspecified open wound of right ear, initial encounter (principal); W01.198A Fall on same level from slipping, tripping and stumbling with subsequent striking against other object, initial encounter; Y93.01 Activity, walking, marching and hiking; Y92.008 Other place in unspecified non-institutional (private) residence as the place of occurrence of the external cause; Z79.01 Long term (current) use of anticoagulants | CPT/HCPCS: A0425; A0429 ==

== ENCOUNTER 2023-08-11 10:54 | Emergency (ER) | payer MEDICARE, OTHER ==
[2023-08-11 11:08] LABS: BASOPHILS # (AUTO) 0.1 10^3/uL (0.0-0.1); BASOPHILS % (AUTO) 0.6 %; EOSINOPHILS # (AUTO) 0.1 10^3/uL (0.0-0.7); EOSINOPHILS % (AUTO) 1.6 %; HCT - HEMATOCRIT 38.4 % (42.0-52.0); LYMPHOCYTES # (AUTO) 1.7 10^3/uL (1.5-3.5); LYMPHOCYTES % (AUTO) 20.5 %; MEAN CORPUSCULAR HEMOGLOBIN 30.7 pg (27.0-31.0); MEAN CORPUSCULAR HGB CONC 31.3 g/dL (32.0-36.0); MEAN CORPUSCULAR VOLUME 98.2 fL (80.0-94.0); MEAN PLATELET VOLUME 9.8 fL (7.4-11.4); MONOCYTES # (AUTO) 0.8 10^3/uL (0.0-1.0); MONOCYTES % (AUTO) 9.7 %; NEUTROPHILS # (AUTO) 5.5 10^3/uL (1.5-6.6); NEUTROPHILS % (AUTO) 67.4 %; PLT - PLATELET COUNT 216 10^3/uL (130-450); RED BLOOD COUNT 3.91 10^6/uL (4.70-6.10); RED CELL DISTRIBUTION WIDTH 12.9 % (12.0-15.0); WHITE BLOOD COUNT 8.2 x10^3/uL (4.8-10.8)
[2023-08-11 11:22] LABS: ALBUMIN 3.9 g/dL (3.2-5.5); ALBUMIN/GLOBULIN RATIO 1.5 (1.0-2.2); CALCIUM 9.3 mg/dL (8.5-10.3); CREATININE 1.3 mg/dL (0.6-1.3); POTASSIUM 4.3 mmol/L (3.5-4.5); TOTAL PROTEIN 6.5 g/dL (6.4-8.9)
--- NOTE | 2023-08-11 11:39 | CT Report ---
PROCEDURE: Head WO INDICATIONS: fall on xarelto/ R ear laceration TECHNIQUE: Noncontrast 4.5 mm thick angled axial sections acquired from the foramen magnum to the vertex. For r adiation dose reduction, the following was used: automated exposure control, adjustment of mA and/or kV according to patient size. COMPARISON: CT head 06/30/2021 FINDINGS: Image quality: Excellent. CSF spaces: Basal cisterns are patent. No extra-axial fluid collections. Ventricles are symmetric in size and shape. Brain: No midline shift. No intracranial masses or hemorrhage. Hypodensities in the subcortical and periventricular white matter are most commonly seen in setting of chronic microvascular ischemic bharathi nges. Age-related cerebral and cerebellar volume loss is seen. Intracranial vascular calcifications a re noted in the internal carotid arteries. Skull and face: Soft tissue gas and skin irregularity are seen in the right auricular region related to the reported laceration. Calvarium and visualized facial bones are intact, without suspicious les ions. Sinuses: Visualized sinuses and mastoids are clear. IMPRESSION: Edema and soft tissue gas are seen related to the right ear laceration. No acute osseous fracture. No intracranial abnormality. Reviewed by: Yoan Moreau MD on 08/11/2023 11:38 AM PDT Approved by: Yoan Moreau MD on 08/11/2023 11:38 AM PDT Station ID: [id number]
--- NOTE | 2023-08-11 11:43 | CT Report ---
PROCEDURE: Cervical Spine WO INDICATIONS: fall on xarelto/ R ear laceration TECHNIQUE: Noncontrast 3 mm thick sections acquired from the skull base to the T4 level. Sagittal and coronal r eformats were then constructed. For radiation dose reduction, the following was used: automated exp osure control, adjustment of mA and/or kV according to patient size. COMPARISON: Correlation is made with the accompanying imaging. FINDINGS: Image quality: Excellent. Bones: No fractures or dislocations. Visualized superior ribs are intact. Focal degenerative change can be seen involving the C1-C2 interface anteriorly. Minimal retrolisthesi s can be seen at C2-C3 and C3-C4. There is moderate disc space narrowing seen at C2-C3. There is bony fusion seen of the C5-C6 level, with the appearance of a congenital fusion. There is at least moderate disc space narrowing seen at C6-C7. Multiple levels of significant facet hypertrophy can be seen. Soft tissues: Prevertebral soft tissues are normal in thickness. No paravertebral hematomas. No ap ical pneumothoraces. Soft tissue injury of the right auricle is partially seen. No sinus changes can be seen at the lung apices. IMPRESSION: Negative for acute fracture. Multiple levels of underlying degenerative change can be seen. Additional findings: Apparent congenital fusion of C5-C6. Erythematous changes Reviewed by: Abdoulaye Reynoso MD on 08/11/2023 10:41 AM [facility] Approved by: Abdoulaye Reynoso MD on 08/11/2023 10:41 AM [facility] Station ID: [id number]
--- NOTE | 2023-08-11 14:10 | ED Physician Documentation ---
History of Present Illness - Stated complaint Stated Complaint: GLF/HEAD INJ - Chief complaint Chief Complaint: Trauma Hd/Nk - History obtained from History obtained from: Patient - Additonal information Additional information: Patient is an 82-year-old male with a history of Parkinson's who is on Xarelto presenting for evaluation of head injury and ground-level fall. Patient states he was walking up a hill He lost his footing and fell. He believes he hit his head on a water spigot causing a laceration to his right ear. As he was getting up he had another fall due to losing his balance. Patient's tetanus is up-to-date. He denies LOC. He denies recently feeling sick. He denies pain anywhere other than to the right ear. Review of Systems Constitutional: denies: Fever Cardiac: denies: Chest pain / pressure Respiratory: denies: Dyspnea GI: denies: Abdominal Pain Neurologic: reports: Head injury PD PAST MEDICAL HISTORY - Past Medical History Past Medical History: Yes Cardiovascular: Hypertension - Past Surgical History Past Surgical History: Yes - Present Medications Home Medications: Ambulatory Orders Medication Instructions Recorded Confirmed Ascorbic Acid [Vitamin C] 02/09/18 Atorvastatin Calcium 20 mg PO DAILY 02/09/18 02/09/18 Glucosamine Sulfate Dipot Chlr 02/09/18 [Glucosamine Sulfate] Levothyroxine [Synthroid] 50 mcg PO DAILY 02/09/18 02/09/18 Multivitamin [Multiple Vitamins] 02/09/18 Oxycodone HCl/Acetaminophen 1 - 2 each PO Q6H PRN #10 tablet 02/09/18 [Percocet 5-325 mg Tablet] Rivaroxaban [Xarelto] 20 mg PO DAILY 02/09/18 02/09/18 lisinopriL [Lisinopril] 5 mg PO DAILY 02/09/18 02/09/18 Amox/Clav 875/125 [Augmentin] 1 each PO Q12H #14 tablet 08/11/23 Lactobacillus Combination No.4 1 each PO DAILY #7 cap 08/11/23 [Probiotic] - Allergies Allergies/Adverse Reactions: Allergies Allergy/AdvReac Type Severity Reaction Status Date / Time No Known Drug Allergies Allergy Verified 08/11/23 11:07 - Social History Does the pt smoke?: No Smoking Status: Never smoker Does the pt drink ETOH?: No Does the pt have substance abuse?: No - Immunizations Immunizations are current?: No Immunizations: TDAP >10years/unknown PD ED PE NORMAL - General General: Alert and oriented X 3, No acute distress, Well developed/nourished - HEENT HEENT: PERRL, EOMI, Moist mucous membranes, Pharynx benign, Other (Large laceration to the superior portion of the right ear sheared off from scalp with exposed cartilage; hematoma to the antihelix) - Neck Neck: Supple, no meningeal sign, No bony TTP - Cardiac Cardiac: RRR, Strong equal pulses - Respiratory Respiratory: No respiratory distress, Clear bilaterally - Abdomen Abdomen: Normal bowel sounds, Soft, Non tender, Non distended - Derm Derm: Warm and dry - Extremities Extremities: No deformity, No tenderness to palpate - Neuro Neuro: Alert and oriented X 3, No motor deficit, No sensory deficit, Normal speech Eye Opening: Spontaneous Motor: Obeys Commands Verbal: Oriented GCS Score: 15 Results - Vitals Vitals: Vital Signs - 24 hr 08/11/23 08/11/23 08/11/23 10:54 11:07 11:37 Temperature 36.3 C L Heart Rate 66 60 66 Respiratory 16 16 17 Rate Blood Pressure 155/70 H 155/70 H 159/72 H O2 Saturation 96 98 100 08/11/23 08/11/23 08/11/23 12:07 12:30 13:00 Temperature Heart Rate 67 64 67 Respiratory 18 18 17 Rate Blood Pressure 144/73 H 163/76 H 160/82 H O2 Saturation 99 99 99 08/11/23 08/11/23 08/11/23 13:30 14:30 15:30 Temperature Heart Rate 67 68 70 Respiratory 17 17 18 Rate Blood Pressure 154/79 H 155/82 H 128/80 O2 Saturation 100 96 96 08/11/23 16:30 Temperature Heart Rate 77 Respiratory 17 Rate Blood Pressure 130/78 O2 Saturation 96 Oxygen O2 Source Room air - Labs Labs: Laboratory Tests 08/11/23 08/11/23 11:02 11:02 WBC 8.2 RBC 3.91 L Hgb 12.0 L Hct 38.4 L MCV 98.2 H MCH 30.7 MCHC 31.3 L RDW 12.9 Plt Count 216 MPV 9.8 Neut # (Auto) 5.5 Lymph # (Auto) 1.7 [place] # (Auto) 0.8 Eos # (Auto) 0.1 Baso # (Auto) 0.1 Absolute Nucleated RBC 0.00 Nucleated RBC % 0.0 Sodium 140 Potassium 4.3 Chloride 109 Carbon Dioxide 25 Anion Gap 6.0 BUN 31 H Creatinine 1.3 Estimated GFR (MDRD) 53 L Glucose 108 H Calcium 9.3 Total Bilirubin 1.0 AST 16 ALT 10 Alkaline Phosphatase 110 Total Protein 6.5 Albumin 3.9 Globulin 2.6 Albumin/Globulin Ratio 1.5 Lipase 21 PD Medical Decision Making - ED course Complexity details: reviewed results, re-evaluated patient, d/w patient ED course: Pt with fall x 2 today, history of Parkinsons and unsteady. Pt on xarelto and did hit head with large complex R ear laceration with superior portion detached from scalp. Ct head and c spine negative for fracture/bleed. [place] [place] in ED and repaired complex ear laceration -requested Augmentin and f/u in 2 weeks. CBC and chemistries without significant findings. Pt is ambulatory here. SW consulted given concerns for pt's ability to care for self. Pt does have family support and is eager for discharge. Pt counseled on need for close follow up with Dr. Griffith as well as with PCP. Advised on concerning symptoms to return for. Departure - Departure Disposition: 01 Home, Self Care Clinical Impression: Laceration of left ear, Head injury Condition: Stable Instructions: ED Head Injury Closed, ED Laceration Facial Sutr Tape Follow-Up: FRANSISCO GRIFFITH [Physician No Access] - (2 weeks ) Dawood Suero MD [Provider Admit Priv/Credential] - Prescriptions: Amox/Clav 875/125 [Augmentin] 1 each PO Q12H #14 tablet Lactobacillus Combination No.4 [Probiotic] 1 each PO DAILY #7 cap Comments: You were evaluated after falling and hitting your head. You had a very large and complicated laceration to your right ear that required a specialist to repair it. You should follow-up with Dr. Griffith in approximately 2 weeks and I have included his office information here. He would like you to keep the dressing in place for as long as she can, ideally until you see him for follow- up. He would like you to be on an antibiotic and I have sent this prescription along with a probiotic to [facility] in [place]. We are concerned about your falls and would like you to consider getting some more help at home. We know social work has spoken to today and we would encourage you to also reach out to your primary care doctor to see how you can get some additional assistance at home. Return to the ER with any worsening symptoms. Forms: PCP List Discharge Date/Time: 08/11/23 16:45
[2023-08-11] MEDS ORDERED: SILVER NITRATE APPLICATOR TOP ONE ×2 (14:15→15:19)
[2023-08-11] MEDS: AMOX/CLAV 875 MG/125 MG TABLET PO STA (15:21)
[2023-08-11] MEDS: SILVER NITRATE APPLICATOR TOP STA (15:21)
[2023-08-11] MEDS: LIDOCAINE 1%-EPI 1:100000 20 ML MDV SUBQ STA (15:21)
[2023-08-11] MEDS: lidocaine 1% 20 ML MDV SUBQ ONE (15:21)
[2023-08-11 16:51] VITALS: BP 130/78; O2SAT 96
--- NOTE | 2023-08-12 08:31 | CONSULTATION NOTE ---
Referring Provider Name of Referring Provider:: Farhan Peters MD Consult Date: 08/11/23 Chief Complaint - Chief Complaint Chief Complaint: Ear pain and bleeding History of Present Illness - Admitted From Admitted From:: ER - History Obtained From History obtained from: Patient Exam Limitations: Dementia - History of Present Illness HPI Comment/Other: Zane is an 82-year-old male who is brought to the emergency room today by ambulance after having a ground-level fall. He actually had 2 ground-level falls. He recounted the story to me today as he was trying to walk out to get the newspaper as he was going down the driveway he could not control his momentum and he stumbled forward. He is not sure how he injured his ear but after the injury he got up got the paper started going back to the house when he stumbled and fell again. At that point he was found by a neighbor and she called 911. He was brought to the emergency room where he was found to have an extensive right ear laceration with active bleeding. He is on an unspecified blood thinner. He does not know why he is taking blood thinning medications. He lives alone. He does not think he lost consciousness during the fall. He does not have pain anywhere else on his body. He reports moderate pain from the right ear. History - Past Medical History Cardiovascular: reports: Hypertension MRSA Hx?: No Meds/Allgy - Home Medications Home Medications: Ambulatory Orders Medication Instructions Recorded Confirmed Ascorbic Acid [Vitamin C] 02/09/18 Atorvastatin Calcium 20 mg PO DAILY 02/09/18 02/09/18 Glucosamine Sulfate Dipot Chlr 02/09/18 [Glucosamine Sulfate] Levothyroxine [Synthroid] 50 mcg PO DAILY 02/09/18 02/09/18 Multivitamin [Multiple Vitamins] 02/09/18 Oxycodone HCl/Acetaminophen 1 - 2 each PO Q6H PRN #10 tablet 02/09/18 [Percocet 5-325 mg Tablet] Rivaroxaban [Xarelto] 20 mg PO DAILY 02/09/18 02/09/18 lisinopriL [Lisinopril] 5 mg PO DAILY 02/09/18 02/09/18 Amox/Clav 875/125 [Augmentin] 1 each PO Q12H #14 tablet 08/11/23 Lactobacillus Combination No.4 1 each PO DAILY #7 cap 08/11/23 [Probiotic] - Allergies Allergies/Adverse Reactions: Allergies Allergy/AdvReac Type Severity Reaction Status Date / Time No Known Drug Allergies Allergy Verified 08/11/23 11:07 Review of Systems - Constitutional Constitutional: reports: Other ( A 14 point review of systems was completed and found to be negative except as noted above in HPI) Exam - Vital Signs Reviewed Vital Signs: Yes - Physical Exam General Appearance: positive: No acute distress ( generally unkempt.) Eyes Bilateral: positive: PERRL, EOMI ENT: positive: Other ( Mouth opening within normal limits. No tenderness in the mouth. No bleeding from the mouth. There is a severe degloving injury of the right ear. There is severe comminution of the cartilage of the right external ear.) Neck: positive: Other ( Neck soft no lacerations. No cervical spine tenderness.) Respiratory: positive: Chest non-tender, No respiratory distress Cardiovascular: positive: Regular rate & rhythm Comments/Other: ear exam continued: The laceration is 5 cm long. It is through and through with jagged complex edges. There are multiple shards of exposed and denuded and devitalized cartilage. The ear itself is no longer shape like near but like a big bag full of blood clot. All of the recognizable anatomy of the external ear has been lost by the formation of an extreme hematoma. The skin over the ear is still vascularized for the most part. There is no blackening edges of skin anywhere. Even though the cartilage on the inside of the ear is completely comminuted half of it is still attached to the perichondrium and therefore likely still vital. There is no gross debris or dirt impaction within this wound. The bleeding is coming from the superior aspect of the junction of the pinna and the scalp. The bleeding is pulsatile. Conclusion and Plan - Lab Results Laboratory Results 08/11/23 11:02: Sodium 140, Potassium 4.3, Chloride 109, Carbon Dioxide 25, Anion Gap 6.0, BUN 31 H, Creatinine 1.3, Estimated GFR (MDRD) 53 L, Glucose 108 H, Calcium 9.3, Total Bilirubin 1.0, AST 16, ALT 10, Alkaline Phosphatase 110, Total Protein 6.5, Albumin 3.9, Globulin 2.6, Albumin/Globulin Ratio 1.5, Lipase 21 08/11/23 11:02: WBC 8.2, RBC 3.91 L, Hgb 12.0 L, Hct 38.4 L, MCV 98.2 H, MCH 30.7, MCHC 31.3 L, RDW 12.9, Plt Count 216, MPV 9.8, Neut # (Auto) 5.5, Lymph # (Auto) 1.7, Meriwether # (Auto) 0.8, Eos # (Auto) 0.1, Baso # (Auto) 0.1, Absolute Nucleated RBC 0.00, Nucleated RBC % 0.0 - Diagnosis Diagnosis: Complex laceration of the right external ear, full-thickness, with partial avulsion of the ear - Consultation Note Consultation Note: 82-year-old male status post 2 mechanical ground-level falls. His injury is a partial avulsion of the right ear with complete loss of recognizable anatomy of the external ear secondary to formation of a large hematoma and secondary to comminution of the cartilage of the pinna. He will need evacuation of the hematoma, control of the hemorrhage, and placement of a pressure dressing to prevent reaccumulation of the hematoma. After that he will need to be on antibiotics to prevent perichondritis. Thankfully the skin around the ear it appears still very vital and not dusky or necrotic. - Plan Plan: Repair of the right ear under local anesthesia.
--- NOTE | 2023-08-12 08:41 | OPERATIVE REPORT ---
Operative Report - General Procedure Date: 08/11/23 Planned Procedure: Control of hemorrhage from the right ear. Repair of complex laceration of the right ear. Pre-Op Diagnosis: Partial avulsion of the right ear with active hemorrhage. Procedure Performed: 1. Evacuation of hematoma of the external ear of the right ear. 2. Control of hemorrhage from right ear laceration 3. Complex layered repair of full-thickness ear laceration with suturing of the skin and cartilage. 5 cm total length. Post Op Diagnosis: Partial avulsion of the right ear with active hemorrhage - Procedure Note Primary Surgeon: Tony East DDS Anesthesia Technique: Local Estimated Blood Loss (mL): 75 Indications: Zane is an 82-year-old male who tripped and fell and hit his ear causing partial avulsion of the ear. Clinical exam is consistent with an extreme hematoma of the right ear, active arterial bleeding, and a laceration involving the skin and cartilage. It was decided that a evacuation of the hematoma with placement of a pressure dressing control of the hemorrhage and closure of the wound with reapproximation of the cartilage was indicated. The risks, benefits, and alternatives of this procedure were discussed with the patient including pain, swelling, bleeding, infection, loss of the ear, hearing damage, need for further surgeries, poor cosmesis, permanent deformity of the ear which is expected and not just a risk, And perichondritis. Adequate time was given to answer all questions and informed consent was obtained. Findings: The patient was encountered in the emergency room. He was in a supine position on the emergency room bed. The first thing that was done was to use lidocaine without epinephrine to anesthetize the area with a ring block around the area. The second thing that was done is to use an additional 4 cc of 2% lidocaine with 1-100,000 epinephrine directly into the site that is bleeding. The site is on the scalp, not on the partially avulsed portion of the ear, and is at the most superior aspect of the junction between the ear and the scalp, above the cartilage. The next thing that was done was to thoroughly rinse off the entire area with a liter of sterile saline. While there was not any gross debris in the area this did help us to achieve a better view of what was actually going on because of all the blood and hair around this area. Hair from the sideburn and the adjacent scalp was also removed to give a more clear view of the laceration and the necessary repair. The wound was prepped and draped in the standard sterile fashion for repair of a facial laceration. Attention was directed to the right ear. A suction was used to evacuate a very very extreme hematoma from within the right external ear. It occupied the entire external ear. The only portion that was not affected by this formation of hematoma was the lobule itself. Once it was evacuated it was quickly rereforming because of active hemorrhage. The hemorrhage really did come from 1 main location and it was from the location mentioned previously which was at the superiormost aspect of the attachment of the ear to the scalp. This hemorrhage was controlled after this point with silver nitrate and with pressure. Once the hemorrhage was controlled then we could proceed with repair of the Ear cartilage. First we reevaluated the hematoma. The site was then irrigated again. Good hemostasis was confirmed. The cartilage was reapproximated using 4-0 Vicryl suture in a [id number] formation. The cartilage within the pano was not addressed because although it was very comminuted 1 portion of it was still attached to the perichondrium. The medial aspect of the perichondrium had been completely from the cartilage. The lateral aspect of the cartilage was still attached to the perichondrium. The only portion that was c ompletely detached from the perichondrium was the superior aspect of the pinna where a large portion of cartilage remained attached to the proximal aspect of the wound and the distal aspect of the wound was only skin without cartilage. This cartilage was reattached to the cartilage of the ear with [id number] Vicryl sutures. After this was performed the skin was closed using 4 using 5-0 Prolene suture. After this was performed a pressure dressing was placed to prevent reaccumulation of this extremely large hematoma. Care was taken to not over tighten the pressure dressing to not block off blood supply to the skin of the ear. After this pressure dressing was placed the patient's head was gently wrapped with a Kerlix. A Coban was then used to gently wrapped the ear and the head and to prevent reaccumulation of the hematoma. Good hemostasis was confirmed. This marked the end of the procedure. Care the patient was returned to the emergency room staff. The patient remained stable throughout the duration of the procedure. Complications: none
== END 2023-08-11 16:45 | disposition home or self-care (01) ==
LOC: EDUNIT# → ED 10:54 → SUPCPDRO 10:54 → ED 16:45
DX: S09.90XA Unspecified injury of head, initial encounter (principal); S01.312A Laceration without foreign body of left ear, initial encounter; W17.81XA Fall down embankment (hill), initial encounter; Y93.01 Activity, walking, marching and hiking; Y92.828 Other wilderness area as the place of occurrence of the external cause; R29.6 Repeated falls; Z91.81 History of falling; I10 Essential (primary) hypertension; G20.A1 Parkinson's disease without dyskinesia, without mention of fluctuations; F02.80 Dementia in other diseases classified elsewhere, unspecified severity, without behavioral disturbance, psychotic disturbance, mood disturbance, and anxiety; Z79.01 Long term (current) use of anticoagulants; Z79.899 Other long term (current) drug therapy
CPT/HCPCS: 13152; 36415; 70450; 72125; 80053; 83690; 85025; 99284; A9270

== ENCOUNTER 2023-12-01 15:10 | Outpatient (CLI) | payer MEDICARE, OTHER ==
[2023-12-01 15:34] LABS: BASOPHILS # (AUTO) 0.1 10^3/uL (0.0-0.1); BASOPHILS % (AUTO) 0.6 %; EOSINOPHILS # (AUTO) 0.1 10^3/uL (0.0-0.7); EOSINOPHILS % (AUTO) 1.1 %; HCT - HEMATOCRIT 37.4 % (42.0-52.0); HGB - HEMOGLOBIN 12.1 g/dL (14.0-18.0); LYMPHOCYTES # (AUTO) 1.8 10^3/uL (1.5-3.5); LYMPHOCYTES % (AUTO) 22.4 %; MEAN CORPUSCULAR HEMOGLOBIN 31.5 pg (27.0-31.0); MEAN CORPUSCULAR HGB CONC 32.4 g/dL (32.0-36.0); MEAN CORPUSCULAR VOLUME 97.4 fL (80.0-94.0); MEAN PLATELET VOLUME 9.6 fL (7.4-11.4); MONOCYTES # (AUTO) 0.5 10^3/uL (0.0-1.0); MONOCYTES % (AUTO) 6.5 %; NEUTROPHILS # (AUTO) 5.4 10^3/uL (1.5-6.6); NEUTROPHILS % (AUTO) 69.1 %; PLT - PLATELET COUNT 265 10^3/uL (130-450); RED BLOOD COUNT 3.84 10^6/uL (4.70-6.10); RED CELL DISTRIBUTION WIDTH 12.7 % (12.0-15.0); WHITE BLOOD COUNT 7.8 x10^3/uL (4.8-10.8)
[2023-12-01 16:03] LABS: ALBUMIN 4.1 g/dL (3.2-5.5); ALBUMIN/GLOBULIN RATIO 1.7 (1.0-2.2); ALKALINE PHOSPHATASE 128 IU/L (42-121); ALT ALANINE AMINOTRANSFERASE 8 IU/L (10-60); AST ASPARTATE AMINOTRANSFERASE 12 IU/L (10-42); BUN - BLOOD UREA NITROGEN 27 mg/dL (6-20); CALCIUM 9.6 mg/dL (8.5-10.3); CARBON DIOXIDE - CO2 30 mmol/L (21-32); CHLORIDE 108 mmol/L (101-111); CHOL/HDL RATIO 3.9 (<5.0); CHOLESTEROL 152 mg/dL; CREATININE 1.1 mg/dL (0.6-1.3); GFR - MDRD 64 (>89); GLUCOSE 114 mg/dL (74-104); HDL CHOLESTEROL 39 mg/dL; LDL CHOLESTEROL,CALCULATED 96 mg/dL; LDL/HDL RATIO 2.5 (<3.6); POTASSIUM 4.5 mmol/L (3.5-4.5); SODIUM 142 mmol/L (135-145); THYROID STIMULATING HORMONE 8.11 uIU/mL (0.34-5.60); TOTAL PROTEIN 6.5 g/dL (6.4-8.9); TRIGLYCERIDES 85 mg/dL; VLDL CHOLESTEROL 17 mg/dL
== END 2023-12-01 15:11 | disposition home or self-care (01) ==
LOC: LAB 15:10
PROVIDERS: ATTEND Family Medicine
DX: R29.6 Repeated falls (principal); R25.1 Tremor, unspecified; E03.9 Hypothyroidism, unspecified; I49.5 Sick sinus syndrome; R63.4 Abnormal weight loss; I48.0 Paroxysmal atrial fibrillation; I10 Essential (primary) hypertension
CPT/HCPCS: 36415; 80053; 80061; 83721; 84153; 84439; 84443; 85025

== ENCOUNTER 2025-02-22 21:22 | Inpatient (IN) ==
--- OUTSIDE RECORDS SUMMARY | 2025-02-22 21:35 | EXTERNAL MEDICAL SUMMARY RPT | Continuity of Care Document ---
Author Organization [facility] Address [address] [place] [id number] Phone Problems date description facility 2025-02-01 09:21 Hypothyroidism, unspecified [facility] 2025-02-01 09:21 Sleep disorder, unspecified i [facility] 2025-02-01 09:21 Essential ([facility]ensio [facility] 2025-02-01 09:21 Paroxysmal atrial fibrillation [facility] 2025-02-01 09:21 Sick sinus syndrome [facility] 2025-02-01 09:21 Heart failure, unspecified [facility] 2025-02-01 09:21 Acute upper respiratory infecti on, unspecified [facility] 2025-02-01 09:21 Simple chronic bronchitis [facility] 2025-02-01 09:21 Unspecified osteoarthritis, uns pecified site [facility] 2025-02-01 09:21 [facility]25-02-01 09:21 Cough, unspecified [facility] 2025-02-01 09:21 Other specified symp toms and signs involving the circulatory and respiratory systems [facility] 2025-02-01 09:21 Localized swelling, mass and keysha mp, head [facility] 2025-02-01 09:21 Adult failure to thrive [facility] 2025-02-01 09:21 Laceration without f oreign body of scalp, [facility] 2025-02-01 09:21 Laceration without f oreign body of right ear, [facility] 2025-02-01 09:21 Unspecified injury of head, ini [facility]ial encounter [facility] 2025-02-01 09:21 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 [facility] 2025-02-01 09:21 History of falling [facility] 2025-02-09 12:48 Other specified symp toms and signs involving the circulatory and respiratory systems [facility] 2025-02-09 12:49 Other specified symp toms and signs involving the circulatory and respiratory systems [facility] 2025-02-10 00:02 Other specified symp toms and signs involving the circulatory and respiratory systems [facility] 2025-02-10 00:04 Anemia, unspecified [facility] 2025-02-10 00:04 Hypothyroidism, unspecified i [facility] 2025-02-10 00:04 Sleep disorder, unspecified i [facility] 2025-02-10 00:04 Simple chronic bronchitis [facility] 2025-02-10 00:04 Adult failure to thrive [facility] 2025-02-10 00:04 Personal history of malignant n eoplasm of prostate [facility] 2025-02-10 10:28 Anemia, unspecified [facility] Results/Labs test date facility value unit notes Result panel 1 PSA SCREEN (Z12.5) 2025-02-09 12:57 [facility] < 0.008 ng/ml [facility] uses a WHO cutoff value of 2.0 ng/mL. NUCLEATED RED BLOOD CELLS AUTO 2025-02-09 12:57 [facility] 0.0 /100wbc (missing) NRBC ABSOLUTE COUNT (AUTO) 2025-02-09 12:57 [facility] 0.00 x10 3/ul (missing) BASOPHILS # (AUTO) 2025-02-09 12:57 [facility] 0.1 10 3/ul (missing) EOSINOPHILS # (AUTO) 2025-02-09 12:57 [facility] 0.2 10 3/ul (missing) MONOCYTES # (AUTO) 2025-02-09 12:57 [facility] 0.6 10 3/ul (missing) FREE T4 (FREE THYROXINE) 2025-02-09 12:57 [facility] 0.85 ng/dl Biotin at >10 ng/mL concentration may cause significant interference. BILIRUBIN,TOTAL 2025-02-09 12:57 [facility] 0.9 mg/dl As of October 2022 testing method has changed, this may include reference ranges. ALBUMIN/GLOBULIN RATIO 2025-02-09 12:57 [facility] 1.2 (missing) (missing) CREATININE 2025-02-09 12:57 [facility] 1.2 mg/dl As of October 2022 testing method has changed, this may include reference ranges. WHITE BLOOD COUNT 2025-02-09 12:57 [facility] 10.5 x10 3/ul (missing) THYROID STIMULATING HORMONE 2025-02-09 12:57 [facility] 10.66 uiu/ml (missing) CHLORIDE 2025-02-09 12:57 [facility] 106 mmol/l As of October 2022 testing method has changed, this may include reference ranges. ALKALINE PHOSPHATASE 2025-02-09 12:57 [facility] 112 iu/l As of October 2022 testing method has changed, this may include reference ranges. RED CELL DISTRIBUTION WIDTH 2025-02-09 12:57 [facility] 12.6 % (missing) AST ASPARTATE AMINOTRANSFERASE 2025-02-09 12:57 [facility] 13 iu/l As of October 2022 testing method has changed, this may include reference ranges. HGB - HEMOGLOBIN 2025-02-09 12:57 [facility] 14.1 g/dl (missing) SODIUM 2025-02-09 12:57 [facility] 141 mmol/l Unknown LYMPHOCYTES # (AUTO) 2025-02-09 12:57 [facility] 2.2 10 3/ul (missing) FREE T3 2025-02-09 12:57 [facility] 2.88 pg/ml Biotin at >10 ng/mL concentration may cause significant interference. BUN - BLOOD UREA NITROGEN 2025-02-09 12:57 [facility] 23 mg/dl As of October 2022 testing method has changed, this may include reference ranges. GLOBULIN 2025-02-09 12:57 [facility] 3.5 g/dl (missing) MEAN CORPUSCULAR HEMOGLOBIN 2025-02-09 12:57 [facility] 30.3 pg (missing) CARBON DIOXIDE - CO2 2025-02-09 12:57 [facility] 31 mmol/l As of October 2022 testing method has changed, this may include reference ranges. MEAN CORPUSCULAR HGB CONC 2025-02-09 12:57 [facility] 31.5 g/dl (missing) PLT - PLATELET COUNT 2025-02-09 12:57 [facility] 329 10 3/ul (missing) ANION GAP 2025-02-09 12:57 [facility] 4.0 (missing) (missing) ALBUMIN 2025-02-09 12:57 [facility] 4.1 g/dl As of October 2022 testing method has changed, this may include reference ranges. POTASSIUM 2025-02-09 12:57 [facility] 4.4 mmol/l As of October 2022 testing method has changed, this may include reference ranges. RED BLOOD COUNT 2025-02-09 12:57 [facility] 4.65 10 6/ul (missing) HCT - HEMATOCRIT 2025-02-09 12:57 [facility] 44.8 % (missing) GFR - MDRD 2025-02-09 12:57 [facility] 58 (missing) The IDMS-traceable MDRD Study Equation has been validated extensively in and populations between the ages of 18 and 70 with impaired kidney function (eGFR < 60 mL/min/1.73m2) and has shown good performance for patients with all common causes of kidney disease. Although this equation has not been validated for patients older than 70, an MDRD-derived eGFR may still be a useful tool for providers caring for patients older than 70. References: http://www.nkdep.n ih.gov/lab-evaluat ion/gfr/creatinine -stand ardization, last updated June 2011. NEUTROPHILS # (AUTO) 2025-02-09 12:57 [facility] 7.4 10 3/ul (missing) TOTAL PROTEIN 2025-02-09 12:57 [facility] 7.6 g/dl As of October 2022 testing method has changed, this may include reference ranges. GLUCOSE 2025-02-09 12:57 [facility] 72 mg/dl As of October 2022 testing method has changed, this may include reference ranges. MEAN PLATELET VOLUME 2025-02-09 12:57 [facility] 8.9 fl (missing) ALT ALANINE AMINOTRANSFERASE 2025-02-09 12:57 [facility] 9 iu/l As of October 2022 testing method has changed, this may include reference ranges. CALCIUM 2025-02-09 12:57 [facility] 9.5 mg/dl As of October 2022 testing method has changed, this may include reference ranges. MEAN CORPUSCULAR VOLUME 2025-02-09 12:57 [facility] 96.3 fl (missing) Social History date description facility
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
[2025-02-22 22:11] LABS: HCT - HEMATOCRIT 41.8 % (42.0-52.0); HGB - HEMOGLOBIN 12.4 g/dL (14.0-18.0); MEAN PLATELET VOLUME 9.0 fL (7.4-11.4); NRBC ABSOLUTE COUNT (AUTO) 0.00 x10^3/uL; NUCLEATED RED BLOOD CELLS AUTO 0.0 /100WBC; PLT - PLATELET COUNT 474 10^3/uL (130-450); RED CELL DISTRIBUTION WIDTH 12.5 % (12.0-15.0)
[2025-02-22] MEDS: IPRATROPIUM/ALBUTEROL 3 ML NEB INH STA (22:22)
[2025-02-22 22:28] LABS: ALT ALANINE AMINOTRANSFERASE 8.0 IU/L (10-60); AST ASPARTATE AMINOTRANSFERASE 11.0 IU/L (10-42); BUN - BLOOD UREA NITROGEN 14.0 mg/dL (6-20); CARBON DIOXIDE - CO2 34.0 mmol/L (21-32); CREATININE 0.9 mg/dL (0.6-1.3); GFR - MDRD 81.0 (>89)
--- NOTE | 2025-02-22 22:30 | XRAY Report ---
PROCEDURE: XR Chest 2V INDICATIONS: shortness of breath, congestion TECHNIQUE: 2 views of the chest were acquired. COMPARISON: February 09, 2025. FINDINGS: 2-lead cardiac pacemaker. Heart size normal. Diffuse consolidation bilaterally, greater on the left. Small left effusion. No pneumothorax. Chronic right rib fractures. IMPRESSION: Small left effusion and diffuse consolidation favoring pulmonary edema over pneumonia Reviewed by: Nathan Hoover MD on 02/22/2025 10:27 PM PDT Approved by: Nathan Hoover MD on 02/22/2025 10:27 PM PDT Station ID: [id number]
[2025-02-22] MEDS ORDERED: ALBUTEROL NEB 2.5 MG/3 ML INH ONE (22:36)
[2025-02-22] MEDS: IPRATROPIUM/ALBUTEROL 3 ML NEB INH PRN (22:38)
[2025-02-22 23:13] LABS: B. PARAPERTUSSIS- RESP PCR PAN NOT DETECTED; B. PERTUSSIS- RESP PCR PANEL NOT DETECTED; C. PNEUMONIAE- RESP PCR PANEL NOT DETECTED; CORONAVIRUS 229E-RESP PCR NOT DETECTED; CORONAVIRUS HKU1-RESP PCR NOT DETECTED; CORONAVIRUS NL63-RESP PCR NOT DETECTED; CORONAVIRUS OC43-RESP PCR NOT DETECTED; HUMAN METAPNEUMOVIRUS NOT DETECTED; INFLUENZA A- RESP PCR PANEL NOT DETECTED; INFLUENZA B - RESP PCR PANEL NOT DETECTED; M. PNEUMONIAE- RESP PCR PANEL NOT DETECTED; PARAINFLUENZA VIRUS 1 NOT DETECTED; PARAINFLUENZA VIRUS 2 NOT DETECTED; PARAINFLUENZA VIRUS 4 NOT DETECTED; RHINOVIRUS/ENTEROVIRUS NOT DETECTED; RSV- RESP PCR PANEL NOT DETECTED; SARS-CoV-2 -RESP PCR PANEL NOT DETECTED
--- NOTE | 2025-02-22 23:27 | CT Report ---
PROCEDURE: CT Chest W INDICATIONS: Significant sob, wheezing, severe pna? CONTRAST: Omni 300 100ml TECHNIQUE: After the administration of intravenous contrast, a CT scan of the chest was performed. Images were recorded and evaluated at appropriate window settings. Reformats: axial MIP of the chest, coronal and sagittal. For radiation dose reduction, the following was used: automated exposure control, adjustment of mA and/or kV according to patient size. COMPARISON: None. FINDINGS: Loculated small left effusion. Tree-in-bud nodularity and consolidation in the bilateral lower lobes, greater on the left and in the posterior right upper lobe. Centrilobular emphysematous changes at the lung apices. No pneumothorax. Heart size normal. Moderate coronary calcification. Cardiac pacemaker. No abnormally enlarged mediastinal lymph nodes. Thyroid is unremarkable. Bilateral axilla unremarkable. Chest wall unremarkable. Partially imaged abdominal aortic aneurysm with thick atherosclerotic plaque. Chronic right rib fractures. No aggressive osseous lesion. Mild degenerative changes of the thoracic spine. IMPRESSION: Consolidation and tree-in-bud nodules bilaterally dependently suggestive of aspiration or possibly endobronchial spread of infection. Loculated left pleural effusion. Partially imaged infrarenal abdominal aortic aneurysm. Reviewed by: Nathan Hoover MD on 02/22/2025 11:24 PM PDT Approved by: Nathan Hoover MD on 02/22/2025 11:24 PM PDT Station ID: [id number]
[2025-02-22] MEDS ORDERED: cefTRIAXone 1 GM VIAL ONE (23:39)
[2025-02-22] MEDS: cefTRIAXone 1 GM in SODIUM CHLORIDE 0.9% MINIBAG 100 ML IV STA (23:41)
[2025-02-23] MEDS ORDERED: ONDANSETRON 4 MG/2 ML VIAL IVP PRN (01:45)
[2025-02-23] MEDS ORDERED: ACETAMINOPHEN 325 MG TABLET PO PRN (01:45)
[2025-02-23] MEDS ORDERED: BENZONATATE 100 MG CAPSULE PO PRN (01:45)
--- OUTSIDE RECORDS SUMMARY | 2025-02-23 01:56 | EXTERNAL MEDICAL SUMMARY RPT | Continuity of Care Document ---
Author Organization [facility] Address [address] [place] [id number] Phone Problems date description facility 2025-02-01 09:21 Hypothyroidism, unspecified [facility] 2025-02-01 09:21 Sleep disorder, unspecified i [facility] 2025-02-01 09:21 Essential (primary) hypertensio n [facility] 2025-02-01 09:21 Paroxysmal atrial fibrillation [facility] 2025-02-01 09:21 Sick sinus syndrome [facility] 2025-02-01 09:21 Heart failure, unspecified [facility] 2025-02-01 09:21 Acute upper respiratory infecti on, unspecified [facility] 2025-02-01 09:21 Simple chronic bronchitis [facility] 2025-02-01 09:21 Unspecified osteoarthritis, uns pecified site [facility] 2025-02-01 09:21 [facility] 2025-02-01 09:21 Cough, unspecified [facility] 2025-02-01 09:21 Other specified symp toms and signs involving the circulatory and respiratory systems [facility] 2025-02-01 09:21 Localized swelling, mass and keysha mp, head [facility] 2025-02-01 09:21 Adult failure to thrive [facility] 2025-02-01 09:21 Laceration without f oreign body of scalp, initial encounter [facility] 2025-02-01 09:21 Laceration without f oreign body of right ear, initial encounter [facility] 2025-02-01 09:21 Unspecified injury of head, ini tial encounter [facility] 2025-02-01 09:21 Other director long term care (current) drug therapy [facility] 2025-02-01 09:21 History of falling [facility] 2025-02-09 12:48 Other specified symp toms and signs involving the circulatory and respiratory systems [facility] 2025-02-09 12:49 Other specified symp toms and signs involving the circulatory and respiratory systems [facility] 2025-02-10 00:02 Other specified symp toms and signs involving the circulatory and respiratory systems [facility] 2025-02-10 00:04 Anemia, unspecified [facility] 2025-02-10 00:04 Hypothyroidism, unspecified i [facility] 2025-02-10 00:04 Sleep disorder, unspecified i [facility] 2025-02-10 00:04 Simple chronic bronchitis [facility] 2025-02-10 00:04 Adult failure to thrive [facility] 2025-02-10 00:04 Personal history of malignant n eoplasm of prostate [facility] 2025-02-10 10:28 [facility], [email or web address] Results/Labs test date facility value unit notes Result panel 1 PSA SCREEN (Z12.5) 2025-02-09 12:57 [facility] < 0.008 ng/ml [facility] uses a WHO cutoff value of 2.0 ng/mL. NUCLEATED RED BLOOD CELLS AUTO 2025-02-09 12:57 [facility] 0.0 /100wbc (missing) NRBC ABSOLUTE COUNT (AUTO) 2025-02-09 12:57 [facility] 0.00 x10 3/ul (missing) BASOPHILS # (AUTO) 2025-02-09 12:57 [facility] 0.1 10 3/ul (missing) EOSINOPHILS # (AUTO) 2025-02-09 12:57 [facility] 0.2 10 3/ul (missing) MONOCYTES # (AUTO) 2025-02-09 12:57 [facility] 0.6 10 3/ul (missing) FREE T4 (FREE THYROXINE) 2025-02-09 12:57 [facility] 0.85 ng/dl Biotin at >10 ng/mL concentration may cause significant interference. BILIRUBIN,TOTAL 2025-02-09 12:57 [facility] 0.9 mg/dl As of October 2022 testing method has changed, this may include reference ranges. ALBUMIN/GLOBULIN RATIO 2025-02-09 12:57 [facility] 1.2 (missing) (missing) CREATININE 2025-02-09 12:57 [facility] 1.2 mg/dl As of October 2022 testing method has changed, this may include reference ranges. WHITE BLOOD COUNT 2025-02-09 12:57 [facility] 10.5 x10 3/ul (missing) THYROID STIMULATING HORMONE 2025-02-09 12:57 [facility] 10.66 uiu/ml (missing) CHLORIDE 2025-02-09 12:57 [facility] 106 mmol/l As of October 2022 testing method has changed, this may include reference ranges. ALKALINE PHOSPHATASE 2025-02-09 12:57 [facility] 112 iu/l As of October 2022 testing method has changed, this may include reference ranges. RED CELL DISTRIBUTION WIDTH 2025-02-09 12:57 [facility] 12.6 % (missing) AST ASPARTATE AMINOTRANSFERASE 2025-02-09 12:57 [facility] 13 iu/l As of October 2022 testing method has changed, this may include reference ranges. HGB - HEMOGLOBIN 2025-02-09 12:57 [facility] 14.1 g/dl (missing) SODIUM 2025-02-09 12:57 [facility] 141 mmol/l Unknown LYMPHOCYTES # (AUTO) 2025-02-09 12:57 [facility] 2.2 10 3/ul (missing) FREE T3 2025-02-09 12:57 [facility] 2.88 pg/ml Biotin at >10 ng/mL concentration may cause significant interference. BUN - BLOOD UREA NITROGEN 2025-02-09 12:57 [facility] 23 mg/dl As of October 2022 testing method has changed, this may include reference ranges. GLOBULIN 2025-02-09 12:57 [facility] 3.5 g/dl (missing) MEAN CORPUSCULAR HEMOGLOBIN 2025-02-09 12:57 [facility] 30.3 pg (missing) CARBON DIOXIDE - CO2 2025-02-09 12:57 [facility] 31 mmol/l As of October 2022 testing method has changed, this may include reference ranges. MEAN CORPUSCULAR HGB CONC 2025-02-09 12:57 [facility] ??? 31.5 g/dl (missing) PLT - PLATELET COUNT 2025-02-09 12:57 [facility] ??? 329 10 3/ul (missing) ANION GAP 2025-02-09 12:57 [facility] ??? 4.0 (missing) (missing) ALBUMIN 2025-02-09 12:57 [facility] ??? 4.1 g/dl As of October 2022 testing method has changed, this may include reference ranges. POTASSIUM 2025-02-09 12:57 [facility] ??? 4.4 mmol/l As of October 2022 testing method has changed, this may include reference ranges. RED BLOOD COUNT 2025-02-09 12:57 [facility] ??? 4.65 10 6/ul (missing) HCT - HEMATOCRIT 2025-02-09 12:57 [facility] ??? 44.8 % (missing) GFR - MDRD 2025-02-09 12:57 [facility] ??? 58 (missing) The IDMS-traceable MDRD Study Equation [...] June 2011. NEUTROPHILS # (AUTO) 2025-02-09 12:57 [facility] ??? 7.4 10 3/ul (missing) TOTAL PROTEIN 2025-02-09 12:57 [facility] ??? 7.6 g/dl As of October 2022 testing method has changed, this may include reference ranges. GLUCOSE 2025-02-09 12:57 [facility] ??? 72 mg/dl As of October 2022 testing method has changed, this may include reference ranges. MEAN PLATELET VOLUME 2025-02-09 12:57 [facility] ??? 8.9 fl (missing) ALT ALANINE AMINOTRANSFERASE 2025-02-09 12:57 [facility] ??? 9 iu/l As of October 2022 testing method has changed, this may include reference ranges. CALCIUM 2025-02-09 12:57 [facility] 9.5 mg/dl As of October 2022 testing method has changed, this may include reference ranges. MEAN CORPUSCULAR VOLUME 2025-02-09 12:57 [facility] 96.3 fl (missing) Result panel 2 NUCLEATED RED BLOOD CELLS AUTO 2025-02-22 21:43 [facility] 0.0 /100wbc (missing) NRBC ABSOLUTE COUNT (AUTO) 2025-02-22 21:43 [facility] 0.00 x10 3/ul (missing) BASOPHILS # (AUTO) 2025-02-22 21:43 [facility] 0.1 10 3/ul (missing) PROCALCITONIN 2025-02-22:43 [facility] 0.12 ng/ml PCT Concentration (ng/mL) Children >72hrs old and Adults Interpretation ======= ======== <0.5 Low risk of severe sepsis and/or septic shock >2.0 High risk of severe sepsis and/or septic shock Concentrations under 0.5 ng/mL do not exclude local infections or systemic infections in their initial stages (e.g. under six hours from onset of illness). PCT concentrations between 0.5 and 2.0 ng/mL should be interpreted with consideration of the patient's history. In this range, it is recommended to retest PCT within 6 to 24hours. EOSINOPHILS # (AUTO) 2025-02-22 21:43 [facility] 0.3 10 3/ul (missing) BILIRUBIN,TOTAL 2025-02-22:43 [facility] ??? 0.5 mg/dl As of October 2022 testing method has changed, this may include reference ranges. MONOCYTES # (AUTO) 2025-02-22 21:43 [facility] ??? 0.8 10 3/ul (missing) ALBUMIN/GLOBULIN RATIO 2025-02-22 21:43 [facility] ??? 0.9 (missing) (missing) CREATININE 2025-02-22 21:43 [facility] ??? 0.9 mg/dl As of October 2022 testing method has changed, this may include reference ranges. LYMPHOCYTES # (AUTO) 2025-02-22 21:43 [facility] ??? 1.9 10 3/ul (missing) CHLORIDE 2025-02-22 21:43 [facility] ??? 104 mmol/l As of October 2022 testing method has changed, this may include reference ranges. AST ASPARTATE AMINOTRANSFERASE 2025-02-22 21:43 [facility] ??? 11 iu/l As of October 2022 testing method has changed, this may include reference ranges. HGB - HEMOGLOBIN 2025-02-22 21:43 [facility] ??? 12.4 g/dl (missing) RED CELL DISTRIBUTION WIDTH 2025-02-22 21:43 [facility] ??? 12.5 % (missing) WHITE BLOOD COUNT 2025-02-22 21:43 [facility] ??? 12.8 x10 3/ul (missing) GLUCOSE 2025-02-22 21:43 [facility] ??? 135 mg/dl As of October 2022 testing method has changed, this may include reference ranges. BUN - BLOOD UREA NITROGEN 2025-02-22 21:43 [facility] ??? 14 mg/dl As of October 2022 testing method has changed, this may include reference ranges. SODIUM 2025-02-22 21:43 [facility] ??? 143 mmol/l (missing) MEAN CORPUSCULAR HEMOGLOBIN 2025-02-22 21:43 [facility] ??? 29.0 pg (missing) MEAN CORPUSCULAR HGB CONC 2025-02-22 21:43 [facility] ??? 29.7 g/dl (missing) ALBUMIN 2025-02-22 21:43 [facility] ??? 3.4 g/dl As of October 2022 testing method has changed, this may include reference ranges. GLOBULIN 2025-02-22 21:43 [facility] ??? 3.9 g/dl (missing) CARBON DIOXIDE - CO2 2025-02-22 21:43 [facility] ??? 34 mmol/l As of October 2022 testing method has changed, this may include reference ranges. POTASSIUM 2025-02-22 21:43 [facility] ??? 4.0 mmol/l As of October 2022 testing method has changed, this may include reference ranges. RED BLOOD COUNT 2025-02-22 21:43 [facility] ??? 4.27 10 6/ul (missing) HCT - HEMATOCRIT 2025-02-22 21:43 [facility] ??? 41.8 % (missing) PLT - PLATELET COUNT 2025-02-22 21:43 [facility] 474 10 3/ul (missing) ANION GAP 2025-02-22 21:43 [facility] ??? 5.0 (missing) (missing) TOTAL PROTEIN 2025-02-22 21:43 [facility] 7.3 g/dl As of October 2022 testing method has changed, this may include reference ranges. ALT ALANINE AMINOTRANSFERASE 2025-02-22 21:43 [facility] ??? 8 iu/l As of October 2022 testing method has changed, this may include reference ranges. GFR - MDRD 2025-02-22 21:43 [facility] ??? 81 (missing) The IDMS-traceable MDRD Study Equation has [...] ion/gfr/creatinine -stand ardization, last updated June 2011. ALKALINE PHOSPHATASE 2025-02-22 21:43 [facility] ??? 86 iu/l As of October 2022 testing method has changed, this may include reference ranges. MEAN PLATELET VOLUME 2025-02-22 21:43 [facility] ??? 9.0 fl (missing) CALCIUM 2025-02-22 21:43 [facility] ??? 9.4 mg/dl As of October 2022 testing method has changed, this may include reference ranges. NEUTROPHILS # (AUTO) 2025-02-22 21:43 [facility] ??? 9.5 10 3/ul (missing) MEAN CORPUSCULAR VOLUME 2025-02-22 21:43 [facility] ??? 97.9 fl (missing) SARS-CoV-2 -RESP PCR PANEL 2025-02-22 21:43 [facility] NOT DETECTED (missing) A negative test result for this test indicates that SARS-CoV-2 RNA was not present in the specimen above the limit of detection. Testing performed on the [employer] RP2.1 Panel, a multiplexed nucleic acid repiratory panel. Negative results do not preclude infection with SARS-CoV-2 virus and should not be the sole basis of a patient management decision. In some patients repeat testing at various time points may be necessary for virus detection. False-negative results may arise from improper sample collection, degradation of viral RNA during shipping or storage, the presence of PCR inhibitors, and/or mutation in the SARS-CoV-2 virus. INFLUENZA A- RESP PCR PANEL 2025-02-22 21:43 [facility] NOT DETECTED (missing) Influenza A including subtypes H1, H3, and H1-2009 not detected by the [employer] RP2.1 Panel, a multiplexed nucleic acid test intended for the simultaneous qualitative detection and differentiation of nucleic acids from multiple viral and bacterial respiratory organisms. B. PARAPERTUSSIS- RESP PCR RACHEL 2025-02-22 21:43 [facility] NOT DETECTED (missing) Negative results for this organism do not preclude infection with this organism and may require additional laboratory testing (e.g., bacterial and viral culture, immunofluorescence , and radiography) when evaluating a patient with possible respiratory tract infection. B. PERTUSSIS- RESP PCR PANEL 2025-02-22 21:43 [facility] NOT [facility]ECTED (missing) Negative results for this organism do not preclude infection with this organism and may require additional laboratory testing (e.g., bacterial and viral culture, immunofluorescence , and radiography) when evaluating a patient with possible respiratory tract infection. C. PNEUMONIAE- RESP PCR PANEL 2025-02-22 21:43 [facility] NOT [facility]ECTED (missing) Negative results for this organism do not preclude infection with this organism and may require additional laboratory testing (e.g., bacterial and viral culture, immunofluorescence , and radiography) when evaluating a patient with possible respiratory tract infection. M. PNEUMONIAE- RESP PCR PANEL 2025-02-22 21:43 [facility] NOT [facility]ECTED (missing) Negative results for this organism do not preclude infection with this organism and may require additional laboratory testing (e.g., bacterial and viral culture, immunofluorescence , and radiography) when evaluating a patient with possible respiratory tract infection. ADENOVIRUS - RESP PCR PANEL 2025-02-22 21:43 [facility] NOT DETECTED (missing) Negative results in the setting ofa respiratory illness may be due to infection with pathogens not detected by this test, or lower respiratory tract infection that may not be detected by nasopharyngeal specimen. CORONAVIRUS 229E-RESP PCR 2025-02-22 21:43 [facility] NOT DETECTED (missing) Negative results in the setting ofa respiratory illness may be due to infection with pathogens not detected by this test, or lower respiratory tract infection that may not be detected by nasopharyngeal specimen. CORONAVIRUS HKU1-RESP PCR 2025-02-22 21:43 [facility] NOT DETECTED (missing) Negative results in the setting ofa respiratory illness may be due to infection with pathogens not detected by this test, or lower respiratory tract infection that may not be detected by nasopharyngeal specimen. CORONAVIRUS [id number] PCR 2025-02-22 21:43 [facility] NOT DETECTED (missing) Negative results in the setting ofa respiratory illness may be due to infection with pathogens not detected by this test, or lower respiratory tract infection that may not be detected by nasopharyngeal specimen. CORONAVIRUS [id number] PCR 2025-02-22 21:43 [facility] NOT DETECTED (missing) Negative results in the setting ofa respiratory illness may be due to infection with pathogens not detected by this test, or lower respiratory tract infection that may not be detected by nasopharyngeal specimen. HUMAN METAPNEUMOVIRUS 2025-02-22 21:43 [facility] NOT DETECTED (missing) Negative results in the setting ofa respiratory illness may be due to infection with pathogens not detected by this test, or lower respiratory tract infection that may not be detected by nasopharyngeal specimen. INFLUENZA B - RESP PCR PANEL 2025-02-22 21:43 [facility] NOT DETECTED (missing) Negative results in the setting ofa respiratory illness may be due to infection with pathogens not detected by this test, or lower respiratory tract infection that may not be detected by nasopharyngeal specimen. PARAINFLUENZA VIRUS 1 2025-02-22 21:43 [facility] NOT DETECTED (missing) Negative results in the setting ofa respiratory illness may be due to infection with pathogens not detected by this test, or lower respiratory tract infection that may not be detected by nasopharyngeal specimen. PARAINFLUENZA VIRUS 2 2025-02-22 21:43 [facility] NOT DETECTED (missing) Negative results in the setting ofa respiratory illness may be due to infection with pathogens not detected by this test, or lower respiratory tract infection that may not be detected by nasopharyngeal specimen. PARAINFLUENZA VIRUS 3 2025-02-22 21:43 [facility] NOT DETECTED (missing) Negative results in the setting ofa respiratory illness may be due to infection with pathogens not detected by this test, or lower respiratory tract infection that may not be detected by nasopharyngeal specimen. PARAINFLUENZA VIRUS 4 2025-02-22 21:43 [facility] NOT DETECTED (missing) Negative results in the setting ofa respiratory illness may be due to infection with pathogens not detected by this test, or lower respiratory tract infection that may not be detected by nasopharyngeal specimen. RHINOVIRUS/ENTEROVIR US 2025-02-22 21:43 [facility] NOT DETECTED (missing) Negative results in the setting ofa respiratory illness may be due to infection with pathogens not detected by this test, or lower respiratory tract infection that may not be detected by nasopharyngeal specimen. RSV- RESP PCR PANEL 2025-02-22 21:43 [facility] NOT DETECTED (missing) Negative results in the setting ofa respiratory illness may be due to infection with pathogens not detected by this test, or lower respiratory tract infection that may not be detected by nasopharyngeal specimen. Social History date description facility
[2025-02-23] MEDS ORDERED: PHENOL THROAT SPRAY 177 ML MM PRN (02:33)
[2025-02-23] MEDS ORDERED: BENZOCAINE/MENTHOL LOZENGE MM PRN (02:33)
[2025-02-23] MEDS ORDERED: CARBOXYMETHYLCELLULOSE OPHTH DROPS EACHEYE PRN (02:33)
[2025-02-23] MEDS ORDERED: WITCH HAZEL/GLYCERIN 1 PAD TOP PRN (02:33)
[2025-02-23] MEDS ORDERED: CALAMINE/ZINC OXIDE 177 ML BOTTLE TOP PRN (02:33)
--- NOTE | 2025-02-23 02:33 | HISTORY & PHYSICAL EXAMINATION ---
Chief Complaint Chief Complaint Chief Complaint: sob, cough, weakness History of Present Illness History of Present Illness HPI Comment/Other: pt with h/o parkinson's, adult ftt, copd on chronic home O2 @ 2L via NC, presents with grandson with worsening weakness, congestion, sob. pt does have his own own but grandson helps take care of him. though pt has fallen in the past, no new falls reported. he was seen @ pcp's office and was told that his respiratory function is getting worse. no chest pain. no n/v/d. no LOC. no new neuro deficits. productive cough as well with clearish-yellow sputum along with runny nose. Review of Systems Status of ROS: 10 or more systems reviewed and unremarkable except as noted in history and below PFSH Active Problems All Active Problems (Updated 02/23/25 @ 01:26 by Gerry Leon MD) Acute and chronic respiratory failure (Acute) Aspiration pneumonia (Acute) Medication management (Acute) Respiratory crackles at right lung base (Acute) Osteoarthritis (Chronic) Sleep disturbance (Acute) Anxiety (Acute) Syncope (Acute) Risk for falls (Acute) Caregiver stress syndrome (Acute) Incontinence of urine (Acute) Lower extremity weakness (Acute) Pleural effusion due to CHF (congestive heart failure) (Acute) Cognitive impairment (Acute) Delirium due to another medical condition (Acute) Peripheral vascular disease, unspecified (Acute) Nicotine dependence, unspecified, uncomplicated (Acute) Essential (primary) hypertension (Acute) Hyperlipidemia, unspecified (Acute) Chronic obstructive pulmonary disease, unspecified (Chronic) Hypothyroidism, unspecified (Acute) Paroxysmal atrial fibrillation (Acute) Diplopia (Acute) Coordination disorder (Acute) Sick sinus syndrome (Acute) Anemia, unspecified (Acute) Adult failure to thrive (Acute) Parkinsonism, unspecified (Acute) Repeated falls (Acute) Left shoulder strain (Acute) Head injury (Acute) Forehead laceration (Acute) Medical History Medical History (Updated 02/23/25 @ 01:26 by Gerry Leon MD) Personal history of malignant neoplasm of prostate Surgical History Surgical History (Updated 01/08/25 @ 14:15 by Dawood Suero MD) Pacemaker Family History Family History (Updated 05/26/24 @ 14:41 by Laya Dobson LPN) Other Family history unknown Social History Social History (Updated 02/15/25 @ 11:09 by Laya Dobson LPN) Smoking Status: Former smoker If you are a former smoker, when did you quit? (Date/Year): Mar 2021 Number of Years Smoked: 60 How many cigarettes a day do you smoke? (20 cigarettes=1 Pk): 20 Second hand tobacco smoke exposure: No Do you dip or chew tobacco?: No Do you vape?: No Patient requests smoking cessation consult: No Initiate information on smoking cessation: No Living arrangement: At home Marital Status: Living Condition: With family Support Person: Yes Physical Activity: None Level: Assisted Do you feel safe in your home environment?: Yes History of physical, verbal, emotional, or financial abuse?: No ETOH Use: None Substance Use: denies use Occupation - Current: [employer] Retired: Yes Known occupational exposures/hazards (Current/Previous): None Known Service: Yes Dates of Service: [id number] Are you following a diet prescribed by a doctor: No Are you following a special diet: No POLST Patient has POLST: No Meds/Allgy Home Medications Ambulatory Orders Medication Instructions Recorded Confirmed Permanent Disabled Placard #1 ea 04/27/24 02/15/25 acetaminophen 500 mg tablet 1,000 mg PO TID PRN 02/15/25 Nebulizer with Adult Mask 10/13/24 02/15/25 morphine concentrate 100 mg/5 mL 10 mg PO Q4H PRN 07/06/2202/15/25 (20 mg/mL) oral solution Hospital Bed #1 ea 11/29/24 02/15/25 albuterol sulfate 90 mcg/actuation 2 puff inhalation Q ID PRN 01/03/25 02/15/25 aerosol inhaler (Ventolin HFA) shortness of breath or wheezing #8.5 grams ipratropium 0.5 mg-albuterol 3 mg 3 ml inhalation BID #180 mL 01/03/25 02/15/25 (2.5 mg base)/3 mL nebulization soln acetaminophen 500 mg tablet 1,000 mg (2 x 500 mg) PO . qhs #60 01/06/25 02/15/25 tabs lorazepam 0.5 mg tablet 0.5 mg PO BID PRN agitation #60 02/07/25 02/15/25 tabs melatonin 5 mg tablet,immediate 5 mg PO .qhs #30 ea 02/15/25 and extended release quetiapine 25 mg tablet (Seroquel) See Rx Instructions PO HS PRN 02/07/25 02/22/25 agitation #90 tabs levothyroxine 50 mcg tablet 50 mcg PO QDAY #30 tabs 02/22/25 (Synthroid) Allergies Allergies Allergy/AdvReac Type Severity Reaction Status Date / Time No Known Drug Allergies Allergy Verified 02/22/25 21:31 Exam Exam Vital Signs: Vital Signs x48h Temp Pulse Resp BP Pulse Ox O2 Flow Rate 02/23/25 02:13 72 20 148/76 H 94 2 02/23/25 01:15 70 20 161/86 H 94 2 02/22/25 22:39 67 16 02/22/25 22:25 60 16 02/22/25 22:00 95 02/22/25 21:26 36.5 C 79 22 185/98 H 88 L gen - aao, confused / sleepy but able to answer simple questions and does smile a bit, but overall flat affect. grandson @ bedside heent - nc/at heart - details per ed charting lungs - details per ed charting abd - per ed charting msk - muscle wasting, cachectic, but no acute trauma neuro - no focal deficits, pt with parkinson's Conclusion/Plan Problem List (1) Acute and chronic respiratory failure: (2) Aspiration pneumonia: Lab Results 02/22/25 21:43 02/22/25 21:43 Other Other Results/Comments: pt with - - acute on chronic hypoxemic resp failure in setting of aspiration pna, noted on imaging in addition to copd exacerbation resp viral panel NEG rocephin, azithromycin, flagyl continue o2, nebs, supportive mgmt consider steroids if worsening hypoxia - adult failure to thrive cachectic, overall debilitated h/o frequent falls encourage po intake, monitor social studies teacher eval for home health care / RESIDENTIAL physical therapy - AAA noted on imaging infrarenal no abdominal pain, vss pt smoked 1 ppd x [address] abd/pelvis
[2025-02-23] MEDS: LACTATED RINGERS 1,000 ML IV SCH (03:09)
[2025-02-23] MEDS ORDERED: ALBUTEROL NEB 2.5 MG/3 ML INH PRN (03:45)
[2025-02-23] MEDS ORDERED: MORPHINE SULFATE 10 MG/5 ML UDC PO PRN (03:48)
[2025-02-23 05:08] LABS: HCT - HEMATOCRIT 33.6 % (42.0-52.0); HGB - HEMOGLOBIN 10.5 g/dL (14.0-18.0); MEAN PLATELET VOLUME 8.9 fL (7.4-11.4); NRBC ABSOLUTE COUNT (AUTO) 0.00 x10^3/uL; NUCLEATED RED BLOOD CELLS AUTO 0.0 /100WBC; PLT - PLATELET COUNT 321 10^3/uL (130-450); RED CELL DISTRIBUTION WIDTH 12.4 % (12.0-15.0)
[2025-02-23 05:24] LABS: CHOL/HDL RATIO 5.0 (<5.0); LDL/HDL RATIO 3.5 (<3.6); VLDL CHOLESTEROL 13 mg/dL
[2025-02-23 05:26] LABS: ALT ALANINE AMINOTRANSFERASE 6.0 IU/L (10-60); AST ASPARTATE AMINOTRANSFERASE 8.0 IU/L (10-42); BUN - BLOOD UREA NITROGEN 11.0 mg/dL (6-20); CARBON DIOXIDE - CO2 31.0 mmol/L (21-32); CREATININE 0.8 mg/dL (0.6-1.3); GFR - MDRD 92.0 (>89)
[2025-02-23] MEDS: PANTOPRAZOLE 40 MG TABLET PO SCH (06:24)
[2025-02-23] MEDS: LEVOTHYROXINE 25 MCG TABLET PO SCH (06:24)
--- NOTE | 2025-02-23 07:09 | PROVIDER PROGRESS NOTE ---
Subjective Prog Note Date Prog Note Date: 02/23/25 Prog Note Time: 15:02 Subjective Subjective: Patient was just admitted earlier today. He was admitted with COPD exacerbation. He has been getting steroids and nebulizer treatments. Improving appropriately. His white count came up a little bit with steroids. 12.8-13.9. Hemoglobin stable around 11. Platelets 321. Metabolic panel is normal, transaminases are low. Albumin 2.8. TSH 5.3. Negative viral respiratory panel. Chest x-ray shows consolidation and tree-in-bud nodularity. With this, leukocytosis, cough, suggestive of pneumonia. Patient was initially started on Rocephin and Flagyl. Intriguingly, the patient was discharged from hospice earlier this year in September because no qualifying diagnosis could be found. Current Medications Current Medications Current Medications: Current Medications Generic Name Dose Route Start Last Admin Trade Name Freq PRN Reason Stop Dose Admin Acetaminophen 650 mg 02/23/25 01:45 Acetaminophen 325 Mg Tablet PO Q6H PRN pain, fever Albuterol 2.5 mg 02/23/25 03:45 Albuterol Neb 2.5 Mg/3 Ml INH QID PRN Shortness of Air/Wheezing Albuterol/Ipratropium 3 ml 02/22/25 22:31 02/22/25 22:38 Ipratropium/Albuterol 3 Ml Neb INH 3 ml Q1HR PRN Administration Wheezing Albuterol/Ipratropium 3 ml 02/23/25 09:00 Ipratropium/Albuterol 3 Ml Neb INH BID ELIO Alcohol 1 amp 02/23/25 09:00 Ethyl Alcohol 62% Swab Ampule PAMELA BID ELIO Benzonatate 100 mg 02/23/25 01:45 Benzonatate 100 Mg Capsule PO TID PRN Cough Calamine 1 applic 02/23/25 02:33 Calamine/Zinc Oxide 177 Ml Bottle TOP PRN PRN SKIN CARE Carboxymethylcellulose 1 drops 02/23/25 02:33 Carboxymethylcellulose Ophth Drops EACHEYE PRN PRN Dry Eye Fluticasone Propionate 1 sprays 02/23/25 09:00 Fluticasone Nasal [place] PAMELA DAILY ELIO Guaifenesin 600 mg 02/23/25 02:00 02/23/25 03:09 Guaifenesin 600 Mg Tablet PO 600 mg BID ELIO Administration Lactated Ringer's 1,000 mls @ 125 mls/hr 10/29/25 02:00 02/23/25 03:09 Lr IV 125 mls/hr .Q8H ELIO Administration Metronidazole 500 mg in 100 mls @ 100 mls/hr 02/23/25 08:00 Flagyl 500 Mg/100 Ml IV 02/28/25 00:59 Q8H ELIO Azithromycin 500 mg/ Sodium 250 mls @ 250 mls/hr 02/23/25 09:00 Chloride IV 02/25/25 09:59 DAILY [facility] Ceftriaxone Sodium 1 gm/ 100 mls @ 200 mls/hr 02/23/25 21:00 Sodium Chloride IV 02/27/25 21:29 HS [facility] Lactobacillus Rhamnosus 1 cap 02/23/25 09:00 Lactobacillus Rhamnosus Gg Capsule PO DAILY [facility] Levothyroxine Sodium 50 mcg 02/23/25 06:00 02/23/25 06:24 Levothyroxine 25 Mcg Tablet PO 50 mcg 0600 [facility] Administration Lorazepam 0.5 mg 02/23/25 01:42 Lorazepam 0.5 Mg Tablet PO BID PRN Agitation Melatonin 3 mg 02/23/25 21:00 Melatonin 3 Mg Tablet PO QPM [facility] Morphine Sulfate 10 mg 02/23/25 03:48 Morphine Sulfate 10 Mg/5 Ml Udc PO Q4H PRN PAIN GREATER THAN 8 Multivitamins/Minerals 1 tab 02/23/25 08:00 Multivitamin W/Minerals Tablet PO DAILYWM [facility] Ondansetron HCl 4 mg 02/23/25 01:45 Ondansetron 4 Mg/2 Ml Vial IVP Q8H PRN Nausea / Vomiting Pantoprazole Sodium 40 mg 02/23/25 07:00 02/23/25 06:24 Pantoprazole 40 Mg Tablet PO 40 mg QDAC [facility] Administration Phenol/Menthol 2 sprays 02/23/25 02:33 Phenol Throat [place] 177 Ml MM Q2HR PRN Throat Pain Quetiapine Fumarate 0 mg 02/23/25 01:42 Quetiapine 25 Mg Tablet PO HS PRN Agitation Throat Lozenges 1 lozenge 02/23/25 02:33 Benzocaine/Menthol Lozenge MM Q2HR PRN Throat pain Witch Deanne/Glycerin 1 pad 02/23/25 02:33 Witch Deanne/Glycerin 1 Pad TOP PRN PRN ITCHING Objective Vital Signs/Intake & Output Reviewed Vital Signs: Yes Vital Signs: Vital Signs x48h Temp Pulse Pulse Resp BP BP Pulse Ox 02/23/25 06:10 36.8 C 76 20 157/72 H 95 02/23/25 02:23 36.7 C 65 20 162/76 H 94 02/23/25 02:13 72 20 148/76 H 94 02/23/25 01:15 70 20 161/86 H 94 O2 Flow Rate 02/23/25 06:10 2 02/23/25 02:23 2 02/23/25 02:13 2 02/23/25 01:15 2 Intake & Output: Intake & Output 02/20/25 02/21/25 02/22/25 02/23/25 23:59 23:59 23:59 23:59 Intake Total 0 / 0 Balance 0 / 0 Weight (kg) 72.575 kg 73 kg Objective Comments/Other: GEN: No acute distress. Frail-appearing. HEENT: NC/AT, normal appearance of external ears and nose. Hearing baseline. Cardiac: Rate controlled, irregular rhythm. No murmurs appreciated. Grossly euvolemic on exam. No visible JVP elevation. Pulm: Coarse rhonchi bilaterally. Actively coughing up thick mucinous sputum. Audible wheeze. Normal effort on 2 L. Abdomen: Soft, nontender, nondistended. No rebound or guarding Extremities: Moves all 4 extremities equally. Normal tone. Neuro: Face symmetric, CN II through XII intact grossly. No focal neurologic deficit. Gait exam deferred. Psych: Mood euthymic with congruent affect. Appropriate. Reasonable historian. Reasonable judgment. Lab Results 02/23/25 05:02 02/23/25 05:02 Other Labs: Lab Results x24hrs 02/23/25 02/22/25 Range/Units 05:02 21:43 WBC 13.9 H 12.8 H (4.8-10.8) x10^3/uL RBC 3.50 L 4.27 L (4.70-6.10) 10^6/uL Hgb 10.5 L 12.4 L (14.0-18.0) g/dL Hct 33.6 L 41.8 L (42.0-52.0) % MCV 96.0 H 97.9 H (80.0-94.0) fL MCH 30.0 29.0 (27.0-31.0) pg MCHC 31.3 L 29.7 L (32.0-36.0) g/dL RDW 12.4 12.5 (12.0-15.0) % Plt Count 321 474 H (130-450) 10^3/uL MPV 8.9 9.0 (7.4-11.4) fL Neut # (Auto) 10.5 H 9.5 H (1.5-6.6) 10^3/uL Lymph # (Auto) 2.1 1.9 (1.5-3.5) 10^3/uL Mccracken # (Auto) 0.8 0.8 (0.0-1.0) 10^3/uL Eos # (Auto) 0.2 0.3 (0.0-0.7) 10^3/uL Baso # (Auto) 0.1 0.1 (0.0-0.1) 10^3/uL Absolute Nucleated RBC 0.00 0.00 x10^3/uL Nucleated RBC % 0.0 0.0 /100WBC Sodium 143 143 (135-145) mmol/L Potassium 3.6 4.0 (3.5-4.5) mmol/L Chloride 107 104 (101-111) mmol/L Carbon Dioxide 31 34 H (21-32) mmol/L Anion Gap 5.0 L 5.0 L (6-13) BUN 11 14 (6-20) mg/dL Creatinine 0.8 0.9 (0.6-1.3) mg/dL Estimated GFR (MDRD) 92 81 L (>89) Glucose 112 H 135 H (74-104) mg/dL Calcium 8.6 9.4 (8.5-10.3) mg/dL Magnesium 1.8 (1.7-2.3) mg/dL Total Bilirubin 0.5 0.5 (0.2-1.0) mg/dL AST 8 L 11 (10-42) IU/L ALT 6 L 8 L (10-60) IU/L Alkaline Phosphatase 73 86 (42-121) IU/L Total Protein 6.0 L 7.3 (6.4-8.9) g/dL Albumin 2.8 L 3.4 (3.2-5.5) g/dL Globulin 3.2 3.9 (2.1-4.2) g/dL Albumin/Globulin Ratio 0.9 L 0.9 L (1.0-2.2) Triglycerides 65 mg/dL Cholesterol 120 ( - 200) mg/dL LDL Cholesterol, Calc 83 ( - 129) mg/dL VLDL Cholesterol 13 mg/dL HDL Cholesterol 24 L (60 - ) mg/dL LDL/HDL Ratio 3.5 (<3.6) Cholesterol/HDL Ratio 5.0 (<5.0) Procalcitonin Immunoas 0.12 (<0.5) ng/mL TSH 5.27 (0.34-5.60) uIU/mL Nasal Adenovirus (PCR) NOT DETECTED Nasal B. parapertussis DNA (PCR) NOT DETECTED Nasal Coronavir 229E PCR NOT DETECTED Nasal Coronavir HKU1 PCR NOT DETECTED Nasal Coronavir NL63 PCR NOT DETECTED Nasal Coronavir OC43 PCR NOT DETECTED Nasal Enterovir/Rhinovir PCR NOT DETECTED Nasal Influenza B PCR NOT DETECTED Nasal Influenza A PCR NOT DETECTED Nasal Parainfluen 1 PCR NOT DETECTED Nasal Parainfluen 2 PCR NOT DETECTED Nasal Parainfluen 3 PCR NOT DETECTED Nasal Parainfluen 4 PCR NOT DETECTED Nasal RSV (PCR) NOT DETECTED Nasal B.pertussis DNA PCR NOT DETECTED Nasal C.pneumoniae (PCR) NOT DETECTED Pamela Human Metapneumo PCR NOT DETECTED Nasal M.pneumoniae (PCR) NOT DETECTED Nasal SARS-CoV-2 (PCR) NOT DETECTED Assessment/Plan Problem List (1) Acute and chronic respiratory failure: (2) Aspiration pneumonia: (3) Chronic obstructive pulmonary disease, unspecified: Impression: Patient presents with history of dysphagia and clear signs of dysphagia as below. He has a history of COPD. On maintenance inhalers. On presentation, he had increased dyspnea, increased sputum production, increased sputum purulence. He has been making a lot of sputum since admission, resting with suction in hand on my interview. Not on oxygen at baseline contrary to prior reports. He is on 2 L O2 this admission. - Wean O2 as tolerated, goal saturation 88 to 92% given evidence of chronic retention - Continue scheduled nebs - Continue scheduled guaifenesin for next 48 hours - Will treat with pulse of steroids, prednisone 40 mg x 5 days - Given clear consolidation on CXR started on ceftriaxone and Flagyl by admitting doc - Potentially discontinue Flagyl versus transition to oral Flagyl in next 1 to 2 days - Unfortunately no flutter valve is available, we have a percussive vest, but patient is clearing secretions appropriately Qualifiers: COPD type: chronic bronchitis Chronic bronchitis type: simple Q ualified Code(s): J41.0 - Simple chronic bronchitis (4) Dysphagia: Impression: On my initial interview, patient was just finished eating and coughing up a lot of aspirate. He is presenting with presumed aspiration pneumonia as above. Speech therapy saw him on 02/23, he has clear signs of aspiration. - Patient is decisional and opts for compassionate feeding, appropriate per his condition, states good understanding of risk - Appreciate GENERAL LEDGER ACCOUNTANT recommendations - I have tried to reach his family for further discussion about this, but they did not answer - Would not recommend a feeding tube given his history of confusion and agitation (5) Adult failure to thrive: (6) Opioid dependence: Impression: Patient previously on hospice for unclear diagnosis. He was eventually discharged from hospice without a demonstrable loss of weight. Unclear what diagnosis initially landed him with hospice. He has had a recurrent diagnosis of failure to thrive in the adult. Multiple falls. He eventually moved in with his grandchildren. Unfortunately patient was started on lorazepam and morphine when he was admitted to hospice. Some clear evidence of deconditioning and muscle weakness. Likely some malnutrition. He has temporal wasting. Decreased muscle mass. - PT/OT to evaluate - Eager to discuss with family, regarding his overall goals of care - Scheduled melatonin every 24 hours at 1900 - Continue as needed morphine 10 mg every 4 hours - Continue as needed 0.5mg p.o. lorazepam - Continue as needed MACHINE SHOP INSPECTOR quetiapine 12.5-25mg (7) Parkinsonism, unspecified: Impression: Per history. He does not have any clear symptoms of parkinsonism. No trauma that I can account for. He is not on any treatment for parkinsonism prior to this. He has some mention in his outpatient notes of this being diagnosed at the [facility]. Unclear if this may have been triggered by a particular medication or temporary process. (8) Paroxysmal atrial fibrillation: Impression: Patient with a longstanding history of paroxysmal atrial fibrillation Previously was on anticoagulation, but this was stopped due to frequent falls several months ago. Prior to his enrollment in hospice. - Patient is at risk for stroke given atrial fibrillation and no anticoagulation, Continue to monitor - Rate controlled at this time, avoiding starting any other rate control medications. (9) Hypothyroidism, unspecified: Impression: Historically has been well-controlled on 25 to 50 mcg of levothyroxine. His prior TSH levels have been somewhat elevated, goal TSH should be 4-8 and otherwise asymptomatic patient given age and atrial fibrillation history per [place] [employer]. TSH this admission 5.3 - Continue T4 at 50 mcg every morning Qualifiers: Hypothyroidism type: acquired Qualified Code(s): E03.9 - Hypothyroidism, unspecified
[2025-02-23] MEDS: MULTIVITAMIN W/MINERALS TABLET PO SCH (09:07)
[2025-02-23] MEDS: LACTOBACILLUS RHAMNOSUS GG CAPSULE PO SCH (09:07)
[2025-02-23] MEDS: ethyl alcohoL 62% SWAB AMPULE NAS SCH (09:08)
[2025-02-23] MEDS: FLUTICASONE NASAL SPRAY NAS SCH (09:08)
[2025-02-23] MEDS: AZITHROMYCIN INJ 500 MG in SODIUM CHLORIDE 0.9% 250 ML IV SCH (09:09)
[2025-02-23] MEDS: IPRATROPIUM/ALBUTEROL 3 ML NEB INH SCH (09:51)
--- NOTE | 2025-02-23 11:48 | Speech Therapy Plan of Care ---
DIAGNOSIS Date of Service Date of Service: 02/23/25 Diagnosis: Acute and chronic respiratory failure, unspecified MEDICAL/SURGICAL PAST HISTORY Past History Medical History (Updated 02/23/25 @ 01:26 by Gerry Leon MD) Personal history of malignant neoplasm of prostate Surgical History (Updated 01/08/25 @ 14:15 by Dawood Suero MD) Pacemaker SPEECH ASSESSMENT Assessment: Mr. Bautista is an 84-year-old male admitted with COPD exacerbation. CT chest revealed bilateral consolidation and tree-in-bud nodules consistent with aspiration or endobronchial spread of infection, along with a loculated left pleural effusion. Per chart, pt was recently discharged from hospice due to lack of qualifying diagnosis. Pt seen in bed with suction at hand. Upon repositioning to upright, he experienced a significant coughing episode and self-suctioned thick mucus. Oral mech exam notable for decreased oral strength and coordination and decreased laryngeal elevation (mild). PO trials revealed immediate overt s/s of aspiration with thin liquids, and delayed cough/throat clear with nectar, honey thick liquids, and puree. Solid trials were deferred due to high aspiration risk and fatigue. Findings are consistent with [id number] oropharyngeal dysphagia, characterized by reduced oral control, premature spillage, delayed swallow initiation, and decreased laryngeal elevation/hyoid excursion. Clinical presentation and imaging suggest recurrent aspiration. MACHINE ROOM OPERATOR discussed results and options for further evaluation and management (MBSS vs PEG vs comfort PO). Pt expressed a wish to continue oral intake for comfort. Recommended minced and moist solids with mildly thick (nectar) liquids for comfort feeding, with aspiration precautions (upright positioning, slow rate, small bites/sips, oral care, suction PRN). Plan to monitor tolerance and provide follow-up dysphagia management as appropriate within comfort-focused goals of care. SPEECH JAVASCRIPT UI DEVELOPER GOALS Comfort: ST half-way goal: Patient will maintain safe and comfortable oral intake with diet and compensatory strategies in place to support hydration, nutrition, and quality of life, within the parameters of comfort-focused care. Goal start date: 02/23/25 Goal achieve by date: 03/26/25 Goal status: New SPEECH PLAN OF CARE Treatment Frequency: 2-4xPRN Treatment Duration: Until goals are met
[2025-02-23] MEDS ORDERED: MULTIVITAMIN W/MINERALS TABLET PO SCH (12:00)
--- NOTE | 2025-02-23 14:20 | PHARMACY PROGRESS NOTE ---
Best Possible Medication History Admit Date and Time: 02/23/25 0143 Home Medications Medication Instructions Recorded Confirmed Type Permanent Disabled Placard #1 ea 04/27/24 02/15/25 Rx acetaminophen 500 mg tablet 1,000 mg PO DAILY PRN feve r or pain 05/26/24 02/23/25 History Nebulizer with Adult Mask 10/13/24 02/15/25 History Hospital Bed #1 ea 11/29/24 02/15/25 Rx albuterol sulfate 90 mcg/actuation 2 puff inhalation Q ID PRN 01/03/25 02/23/25 Rx aerosol inhaler (Ventolin HFA) shortness of breath or wheezing #8.5 grams ipratropium 0.5 mg-albuterol 3 mg 3 ml inhalation BID #180 mL 01/03/25 02/23/25 Rx (2.5 mg base)/3 mL nebulization soln lorazepam 0.5 mg tablet 0.5 mg PO BID PRN agitation #60 02/07/25 02/23/25 Rx tabs levothyroxine 50 mcg tablet 50 mcg PO DAILY 02/23/25 1 History (Synthroid) melatonin 5 mg tablet,immediate 5 mg PO HS PRN sleep 1 02/23/25 History and extended release quetiapine 25 mg tablet (Seroquel) 75 mg PO HS PRN marti tation 02/23/25 02/23/25 History Processed by: Pharmacy (Medication reconciliation completed by Java Lead EngineerAmber) Medications reviewed in ED?: No Medication History completed: Yes Patient Interview: Pt unable to participate Secondary Source(s): Other family member (daughter) and Insurance records [facility] Statement: As the person ultimately responsible for medication therapy, providers are able to order a medication from an existing home medication list in [facility] via the "Reconcile Routine" prior to Confirmation of that medication by network support manager. Such practice is discouraged except when the physician, in their clinical judgment, deems that a medical need exists for a medication without regard to previous use.
[2025-02-23 15:56] LABS: ESTIMATED AVERAGE GLUCOSE 117 mg/dL (70-100); HEMOGLOBIN A1c% 5.7 % (4.27-6.07)
--- NOTE | 2025-02-23 18:31 | PT Plan of Care ---
PT Plan of Care Physical Therapy Plan of Care: Diagnosis Diagnosis aspiration pna Referring Provider Bassem James Patient Status Inpatient Chief Complaint Chief Complaint SOA Onset of Chief Complaint CURTAIN STRETCHER Medical History (Updated 02/23/25 @ 16:00 by Bassem James, DO) Personal history of malignant neoplasm of prostate Surgical History (Updated 01/08/25 @ 14:15 by Dawood Suero MD) Pacemaker Balance/ Functional Results Sitting Balance Fair Standing Balance Poor Assessment Assessment Pt is a pleasant 84yo M referred for PT eval d/t limited mobility. Admitted with SOA d/t aspiration pna. Complex medical history including likely PD dx though pt states he has never taken meds for this. Add'l hx includes prostate cx, COPD, and chronic UR congestion. Was on hospice previously but dc'd from services in September 2024. Cleared for eval by hospitalist. Upon PT eval, pt has distant gaze, unable to fixate or localize but states he can see clearly and reads 2nd hand of clock correctly. Slowed motor function including speech, mobility, and motor planning. Benefits from additional time to complete all tasks and slow, 2-3 step verbal directions paired with manual assist. Requires modAx1 overall for transfer OOB, STS with FWW and completes SPT to chair. Mild retropulsion in standing and overall moderate to high fall risk given deconditioning, weakness, and cognitive changes. Pt may benefit from continued PT in acute setting to progress gait training and improve functional indep. Of note, pt states he is moving at baseline and his family assists with all mobility needs at home. When medically clear PT rec dc to SNF vs home with family pending GOC and families ability to meet current care needs. Goals Improve bed mobility to: Contact Guard Improve supine to sit to: Contact Guard Improve sit to stand to: Minimal Assist Improve pivot transfer ability Contact Guard to: Improve sit to supine to: Contact Guard Improve gait ability to: Min A Assistive Device Used: Front Wheeled Walker Improve Standing Balance to: Good PT Plan of Care Frequency 1-2x/day Duration Until goals are met Discharge Recommendations Discharge Location SNF vs home Other TBD Transport Needs at Discharge Personal vehicle
[2025-02-23] MEDS: MELATONIN 3 MG TABLET PO SCH (18:33)
[2025-02-23] MEDS ORDERED: MELATONIN 3 MG TABLET PO SCH (21:00)
[2025-02-23] MEDS: guaiFENesin 100 MG/5 ML UDC PO SCH (21:15)
[2025-02-23] MEDS: cefTRIAXone 1 GM in SODIUM CHLORIDE 0.9% MINIBAG 100 ML IV SCH (21:15)
[2025-02-24 09:36] LABS: HCT - HEMATOCRIT 35.6 % (42.0-52.0); HGB - HEMOGLOBIN 11.2 g/dL (14.0-18.0); MEAN PLATELET VOLUME 9.0 fL (7.4-11.4); NRBC ABSOLUTE COUNT (AUTO) 0.00 x10^3/uL; NUCLEATED RED BLOOD CELLS AUTO 0.0 /100WBC; PLT - PLATELET COUNT 405 10^3/uL (130-450); RED CELL DISTRIBUTION WIDTH 12.4 % (12.0-15.0)
[2025-02-24 09:44] LABS: BUN - BLOOD UREA NITROGEN 13.0 mg/dL (6-20); CARBON DIOXIDE - CO2 33.0 mmol/L (21-32); CREATININE 0.8 mg/dL (0.6-1.3); GFR - MDRD 92.0 (>89)
--- NOTE | 2025-02-24 10:12 | PROVIDER PROGRESS NOTE ---
<Statement entered by Bassem James, DO - 02/24/25 16:34> I was present with the AMILCAR student on the hospitalist service. I personally verified the history of present illness and performed the physical examination and medical decision making. I have verified the students documentation for this encounter and agree with the plan of care below. In addition this an 84-year-old male with past medical history of COPD, possible parkinsonism, hypothyroidism, and history of agitation. He has intermittently been previously been on hospice for failure to thrive. He was discharged from hospice earlier this year as he was getting better. Patient is admitted with COPD exacerbation in the setting of aspiration pneumonia. He has clear aspiration on exam. He has been seen by speech, and today they changed him to a pured diet. He is on compassionate feedings which is concordant with his wishes. Seen by physical therapy who recommended either SNF versus home with adequate supports. He does sound like he has great supports at home and I will try and get him back there with home health. I placed a home health order today. Patient has a history of COPD, he is not on maintenance inhalers. He is only on DuoNebs. He would benefit from being on LABA/LAMA/ICS given his Gold class E. He can continue with systemic steroids during this hospitalization and DuoNebs scheduled. At discharge, I will prescribe him a LABA/LAMA/ICS. I cannot guarantee that his insurance will cover this though it is clinically indicated. Otherwise he will complete a pulsed dose of steroids. Given his increasing leukocytosis and poor response so far, we will transition to Unasyn for coverage of aspiration pneumonia. Nothing is cultured at this point in time. He is not septic with regard to his vital signs. Subjective Prog Note Date Prog Note Date: 02/24/25 Prog Note Time: 09:47 Subjective Pt reports feeling: No change Subjective: Zane Bautista is a 84 year old male with a history of pleural effusion, nicotine dependence, COPD, and paroxsymal Afib that was admitted on 02/23 for COPD exacerbation. The patient was discharged from hospice earlier this year in September because no qualifying diagnosis could be found. He has been getting steroids and nebulizer treatments. Improving appropriately. Resting with suction in hand on my interview. He slept ok last night. He says it's difficult to take deep breaths. He feels like the O2 is helping a bit. ROS: Denies fever, chills, nausea, vomiting Reports difficulty taking deep breaths. Reports cough with sputum Reports difficulty swallowing Current Medications Current Medications Current Medications: Current Medications Generic Name Dose Route Start Last Admin Trade Name Freq PRN Reason Stop Dose Admin Acetaminophen 650 mg 02/23/25 01:45 Acetaminophen 325 Mg Tablet PO Q6H PRN pain, fever Albuterol 2.5 mg 02/23/25 03:45 Albuterol Neb 2.5 Mg/3 Ml INH QID PRN Shortness of Air/Wheezing Albuterol/Ipratropium 3 ml 02/22/25 22:31 02/22/25 22:38 Ipratropium/Albuterol 3 Ml Neb INH 3 ml Q1HR PRN Administration Wheezing Albuterol/Ipratropium 3 ml 02/23/25 09:00 02/24/25 07:16 Ipratropium/Albuterol 3 Ml Neb INH 3 ml BID ELIO Administration Alcohol 1 amp 02/23/25 09:00 02/24/25 08:26 Ethyl Alcohol 62% Swab Ampule PAMELA 1 amp BID ELIO Administration Calamine 1 applic 02/23/25 02:33 Calamine/Zinc Oxide 177 Ml Bottle TOP PRN PRN SKIN CARE Carboxymethylcellulose 1 drops 02/23/25 02:33 Carboxymethylcellulose Ophth Drops EACHEYE PRN PRN Dry Eye Fluticasone Propionate 1 sprays 02/23/25 09:00 02/24/25 08:25 Fluticasone Nasal [place] PAMELA 1 sprays DAILY ELIO Administration Guaifenesin 200 mg 02/23/25 21:00 02/24/25 08:26 Guaifenesin 100 Mg/5 Ml Udc PO 02/24/25 21:01 200 mg BID ELIO Administration Lactated Ringer's 1,000 mls @ 125 mls/hr 02/23/25 02:00 02/24/25 04:45 Lr IV 125 mls/hr .Q8H ELIO Administration Azithromycin 500 mg/ Sodium 250 mls @ 250 mls/hr 02/23/25 09:00 02/24/25 08:26 Chloride IV 02/25/25 09:59 250 mls/hr DAILY ELIO Administration Ceftriaxone Sodium 1 gm/ 100 mls @ 200 mls/hr 02/23/25 21:00 02/23/25 22:38 Sodium Chloride IV 02/27/25 21:29 Infused HS ELIO Infusion Lactobacillus Rhamnosus 1 cap 02/23/25 09:00 02/24/25 08:26 Lactobacillus Rhamnosus Gg Capsule PO 1 cap DAILY ELIO Administration Levothyroxine Sodium 50 mcg 02/23/25 06:00 02/24/25 06:11 Levothyroxine 25 Mcg Tablet PO 50 mcg 0600 ELIO Administration Lorazepam 0.5 mg 02/23/25 01:42 Lorazepam 0.5 Mg Tablet PO BID PRN Agitation Melatonin 3 mg 02/23/25 19:00 02/23/25 18:33 Melatonin 3 Mg Tablet PO 3 mg Q24H ELIO Administration Morphine Sulfate 10 mg 02/23/25 03:48 Morphine Sulfate 10 Mg/5 Ml Udc PO Q4H PRN PAIN GREATER THAN 8 Multivitamins/Minerals 1 tab 02/23/25 08:00 02/24/25 08:27 Multivitamin W/Minerals Tablet PO 1 tab DAILYWM ELIO Administration Ondansetron HCl 4 mg 02/23/25 01:45 Ondansetron 4 Mg/2 Ml Vial IVP Q8H PRN Nausea / Vomiting Pantoprazole Sodium 40 mg 02/23/25 07:00 02/24/25 06:11 Pantoprazole 40 Mg Tablet PO 40 mg QDAC ELIO Administration Phenol/Menthol 2 sprays 02/23/25 02:33 Phenol Throat [place] 177 Ml MM Q2HR PRN Throat Pain Prednisone 40 mg 02/23/25 09:00 02/24/25 08:26 Prednisone 20 Mg Tablet PO 02/27/25 08:01 40 mg DAILYWM ELIO Administration Quetiapine Fumarate 25 mg 02/23/25 16:40 Quetiapine 25 Mg Tablet PO HS PRN Agitation Throat Lozenges 1 lozenge 02/23/25 02:33 Benzocaine/Menthol Lozenge MM Q2HR PRN Throat pain Witch Deanne/Glycerin 1 pad 02/23/25 02:33 Witch Deanne/Glycerin 1 Pad TOP PRN PRN ITCHING Objective Vital Signs/Intake & Output Reviewed Vital Signs: Yes Vital Signs: Vital Signs x48h Temp Pulse Pulse Resp BP Pulse Ox O2 Flow Rate 02/24/25 08:03 36.4 C L 71 20 141/76 H 98 2 02/24/25 07:17 2 02/24/25 07:17 78 24 02/24/25 04:57 36.4 C L 67 20 138/94 H 92 2 Intake & Output: Intake & Output 02/21/25 02/22/25 02/23/25 02/24/25 23:59 23:59 23:59 23:59 Intake Total 3118 / 3118 745 / 745 Balance 3118 / 3118 745 / 745 Weight (kg) 72.575 kg 73 kg Objective General Appearance: positive No acute distress and Other (Frail-appearing) Eyes Bilateral: positive Conjunctivae nml Respiratory: positive Chest non-tender, No respiratory distress, Wheezes and Rhonchi (especially RLL); negative Rales Cardiovascular: positive No murmur and No gallop; negative Regular rate & rhythm (Rate controlled, irregular rhythm) or Friction rub Peripheral Pulses: 2+: Radial (R), 2+: Radial (L), 2+: Dorsalis pedis (R) and 2+: Dorsalis pedis (L) Back: positive Nml inspection Skin: positive Color nml Extremities: positive No pedal edema Neurologic/Psychiatric: positive Oriented x3 and Mood/affect nml; negative Facial droop Lab Results 02/24/25 09:25 02/24/25 09:25 Other Labs: Lab Results x24hrs 02/24/25 02/23/25 Range/Units 09:25 05:02 WBC 15.5 H (4.8-10.8) x10^3/uL RBC 3.69 L (4.70-6.10) 10^6/uL Hgb 11.2 L (14.0-18.0) g/dL Hct 35.6 L (42.0-52.0) % MCV 96.5 H (80.0-94.0) fL MCH 30.4 (27.0-31.0) pg MCHC 31.5 L (32.0-36.0) g/dL RDW 12.4 (12.0-15.0) % Plt Count 405 (130-450) 10^3/uL MPV 9.0 (7.4-11.4) fL Neut # (Auto) 11.8 H (1.5-6.6) 10^3/uL Lymph # (Auto) 2.5 (1.5-3.5) 10^3/uL Floyd # (Auto) 0.9 (0.0-1.0) 10^3/uL Eos # (Auto) 0.1 (0.0-0.7) 10^3/uL Baso # (Auto) 0.1 (0.0-0.1) 10^3/uL Absolute Nucleated RBC 0.00 x10^3/uL Nucleated RBC % 0.0 /100WBC Sodium 141 (135-145) mmol/L Potassium 3.5 (3.5-4.5) mmol/L Chloride 102 (101-111) mmol/L Carbon Dioxide 33 H (21-32) mmol/L Anion Gap 6.0 (6-13) BUN 13 (6-20) mg/dL Creatinine 0.8 (0.6-1.3) mg/dL Estimated GFR (MDRD) 92 (>89) Glucose 171 H (74-104) mg/dL Estimat Average Glucose 117 H (70-100) mg/dL Hemoglobin A1c % 5.7 (4.27-6.07) % Calcium 8.6 (8.5-10.3) mg/dL Diagnostic Imaging Diagnostic Imaging Results: positive Final report reviewed Assessment/Plan Problem List (1) Acute and chronic respiratory failure: Impression: Pt on 2L O2 and satting at 98% on 02/24. Pt not on O2 at home. Ok to wean off O2. - Wean O2 as tolerated, goal saturation 88 to 92% given evidence of chronic retention (2) Aspiration pneumonia: Impression: Zane Bautista is a 84 year old male with a history of pleural effusion, nicotine dependence, COPD, and paroxsymal Afib that was admitted on 02/23 for COPD exacerbation. Patient presents with history of dysphagia and clear signs of dysphagia as below. On presentation, he had increased dyspnea, increased sputum production, increased sputum purulence. He has been making a lot of sputum since admission. WBC 12.8, 13.9, 15.5. Hemoglobin 11.2. Platelets 405. Metabolic panel is normal, 02/23 transaminases were low. 02/23 albumin 2.8. 02/23 TSH 5.27. Negative viral respiratory panel. 02/22 CXR impression: "Small left effusion and diffuse consolidation favoring pulmonary edema over pneumonia" 02/[address] impression: "Consolidation and tree-in-bud nodules bilaterally dependently suggestive of aspiration or possibly endobronchial spread of infection. Loculated left pleural effusion. Partially imaged infrarenal abdominal aortic aneurysm." Given clear consolidation on CXR started on ceftriaxone and metronidazole by admitting doc. Metronidazole discontinued 02/23. Azithromycin started 02/23. Given continuing WBC increase, switch ceftriaxone to another Abx. - Switch ceftriaxone to ampicillin-sulbactam 3g IV q6hrs x 5 days - Continue Azithromycin 500 mg IV daily til 02/25 (3) Chronic obstructive pulmonary disease, unspecified: Impression: He has a history of COPD that is managed with albuterol PRN and ipratropium- albuterol BID inhalers. Gold criteria no longer supports EDDIE-LIZBETH use outside the hospital setting. Start to switch patient to [id number] (ex. fluticasone [id number]) BID and LIZBETH PRN inhalers. Not on oxygen at baseline contrary to prior reports. He is on 2 L O2 this admission. Will treat with pulse of steroids, prednisone 40 mg x 5 days. Current IP inhalers: ipratropium-albuterol (DuoNeb) BID and albuterol PRN. No flutter valve is available, we have a percussive vest, but patient is clearing secretions appropriately - Wean O2 as tolerated, goal saturation 88 to 92% given evidence of chronic retention - Switch to [id number] inhaler 1 puff daily - Continue last scheduled guaifenesin dose - Continue prednisone 40 mg til 02/27 - Continue suction as needed Qualifiers: COPD type: chronic bronchitis Chronic bronchitis type: simple Q ualified Code(s): J41.0 - Simple chronic bronchitis (4) Dysphagia: Impression: He is presenting with presumed aspiration pneumonia as above. Speech therapy saw him on 02/23, he has clear signs of aspiration. Patient is decisional and opts for compassionate feeding, appropriate per his condition, states good understanding of risk Appreciate IRON BENDER recommendations has tried to reach his family for further discussion about this, but they did not answer Would not recommend a feeding tube given his history of confusion and agitation - Continue compassionate feeding, minced/moist diet (5) Adult failure to thrive: (6) Opioid dependence: Impression: Patient previously on hospice for unclear diagnosis. He was eventually discharged from hospice in September 2024 without a demonstrable loss of weight. Unclear what diagnosis initially landed him with hospice. He has had a recurrent diagnosis of failure to thrive in the adult. Multiple falls. He eventually moved in with his grandchildren. Unfortunately patient was started on lorazepam and morphine when he was admitted to hospice. Some clear evidence of deconditioning and muscle weakness. Likely some malnutrition. He has temporal wasting. Decreased muscle mass. - PT/OT to evaluate - Eager to discuss with family, regarding his overall goals of care - Scheduled melatonin every 24 hours at 1900 - Continue as needed morphine 10 mg every 4 hours - Continue as needed 0.5mg p.o. lorazepam - Continue as needed [employer] quetiapine 12.5-25mg (7) Parkinsonism, unspecified: Impression: Per history. He does not have any clear symptoms of parkinsonism. No trauma that I can account for. He is not on any treatment for parkinsonism prior to this. He has some mention in his outpatient notes of this being diagnosed at the [facility]. Unclear if this may have been triggered by a particular medication or temporary process. (8) Paroxysmal atrial fibrillation: Impression: Rate controlled. Patient with a longstanding history of paroxysmal atrial fibrillation Previously was on anticoagulation, but this was stopped due to frequent falls several months ago. Prior to his enrollment in hospice. Patient is at risk for stroke given atrial fibrillation and no anticoagulation. - Continue to monitor - Rate controlled at this time, avoiding starting any other rate control medications. (9) Hypothyroidism, unspecified: Impression: Historically has been well-controlled on 25 to 50 mcg of levothyroxine. His prior TSH levels have been somewhat elevated historically, goal TSH should be 4- 8 and otherwise asymptomatic patient given age and atrial fibrillation history per [place] [employer]. TSH this admission 5.3 - Continue T4 at 50 mcg every morning Qualifiers: Hypothyroidism type: acquired Qualified Code(s): E03.9 - Hypothyroidism, unspecified
[2025-02-24] MEDS ORDERED: AMPICILLIN/SULBACTAM 1.5 GM in SODIUM CHLORIDE 0.9% MINIBAG 100 ML IV SCH (18:00)
[2025-02-24] MEDS: AMPICILLIN/SULBACTAM 3 GM in SODIUM CHLORIDE 0.9% MINIBAG 100 ML IV SCH (20:02)
[2025-02-25] MEDS ORDERED: AMPICILLIN/SULBACTAM 3 GM in SODIUM CHLORIDE 0.9% MINIBAG 100 ML IV SCH ×3
[2025-02-25] MEDS: AMPICILLIN/SULBACTAM 3 GM in SODIUM CHLORIDE 0.9% MINIBAG 100 ML IV SCH (02:45)
[2025-02-25 05:57] LABS: HCT - HEMATOCRIT 37.0 % (42.0-52.0); HGB - HEMOGLOBIN 11.7 g/dL (14.0-18.0); MEAN PLATELET VOLUME 8.9 fL (7.4-11.4); NRBC ABSOLUTE COUNT (AUTO) 0.00 x10^3/uL; NUCLEATED RED BLOOD CELLS AUTO 0.0 /100WBC; PLT - PLATELET COUNT 428 10^3/uL (130-450); RED CELL DISTRIBUTION WIDTH 12.4 % (12.0-15.0)
[2025-02-25 06:11] LABS: BUN - BLOOD UREA NITROGEN 15.0 mg/dL (6-20); CARBON DIOXIDE - CO2 34.0 mmol/L (21-32); CREATININE 0.9 mg/dL (0.6-1.3); GFR - MDRD 81.0 (>89)
--- NOTE | 2025-02-25 09:25 | PROVIDER PROGRESS NOTE ---
Subjective Prog Note Date Prog Note Date: 02/24/25 Prog Note Time: 09:47 Subjective Pt reports feeling: No change Subjective: Zane Bautista is a 84 year old male with a history of pleural effusion, nicotine dependence, COPD, and paroxsymal Afib that was admitted on 02/23 for COPD exacerbation. The patient was discharged from hospice earlier this year in September because no qualifying diagnosis could be found. He has been getting steroids and nebulizer treatments. Improving appropriately. Resting with suction in hand on my interview. He slept ok last night. He says it's difficult to take deep breaths. He feels like the O2 is helping a bit. ROS: Denies fever, chills, nausea, vomiting Reports difficulty taking deep breaths. Reports cough with sputum Reports difficulty swallowing Current Medications Current Medications Current Medications: Current Medications Generic Name Dose Route Start Last Admin Trade Name Freq PRN Reason Stop Dose Admin Acetaminophen 650 mg 02/23/25 01:45 Acetaminophen 325 Mg Tablet PO Q6H PRN pain, fever Albuterol 2.5 mg 02/23/25 03:45 Albuterol Neb 2.5 Mg/3 Ml INH QID PRN Shortness of Air/Wheezing Albuterol/Ipratropium 3 ml 02/22/25 22:31 02/22/25 22:38 Ipratropium/Albuterol 3 Ml Neb INH 3 ml Q1HR PRN Administration Wheezing Albuterol/Ipratropium 3 ml 02/23/25 09:00 02/25/25 08:42 Ipratropium/Albuterol 3 Ml Neb INH 3 ml BID ELIO Administration Calamine 1 applic 02/23/25 02:33 Calamine/Zinc Oxide 177 Ml Bottle TOP PRN PRN SKIN CARE Carboxymethylcellulose 1 drops 02/23/25 02:33 Carboxymethylcellulose Ophth Drops EACHEYE PRN PRN Dry Eye Fluticasone Propionate 1 sprays 02/23/25 09:00 02/25/25 08:44 Fluticasone Nasal [place] PAMELA 1 sprays DAILY ELIO Administration Lactated Ringer's 1,000 mls @ 125 mls/hr 02/23/25 02:00 02/25/25 04:44 Lr IV 125 mls/hr .Q8H ELIO Administration Azithromycin 500 mg/ Sodium 250 mls @ 250 mls/hr 02/23/25 09:00 02/25/25 07:22 Chloride IV 02/25/25 09:59 Infused DAILY ELIO Infusion Ampicillin Sodium/Sulbactam 100 mls @ 200 mls/hr 02/25/25 02:00 02/25/25 08:43 Sodium 3 gm/ Sodium Chloride IV 200 mls/hr Q6H ELIO Administration Lactobacillus Rhamnosus 1 cap 02/23/25 09:00 02/25/25 08:44 Lactobacillus Rhamnosus Gg Capsule PO 1 cap DAILY ELIO Administration Levothyroxine Sodium 50 mcg 02/23/25 06:00 02/25/25 06:26 Levothyroxine 25 Mcg Tablet PO 50 mcg 0600 [facility] Administration Lorazepam 0.5 mg 02/23/25 01:42 Lorazepam 0.5 Mg Tablet PO BID PRN Agitation Melatonin 3 mg 02/23/25 19:00 02/24/25 20:13 Melatonin 3 Mg Tablet PO 3 mg Q24H ELIO Administration Morphine Sulfate 10 mg 02/23/25 03:48 Morphine Sulfate 10 Mg/5 Ml Udc PO Q4H PRN PAIN GREATER THAN 8 Multivitamins/Minerals 1 tab 02/23/25 08:00 02/25/25 08:44 Multivitamin W/Minerals Tablet PO 1 tab DAILYWM [facility] Administration Ondansetron HCl 4 mg 02/23/25 01:45 Ondansetron 4 Mg/2 Ml Vial IVP Q8H PRN Nausea / Vomiting Pantoprazole Sodium 40 mg 02/23/25 07:00 02/25/25 06:18 Pantoprazole 40 Mg Tablet PO 40 mg QDAC [facility] Administration Phenol/Menthol 2 sprays 02/23/25 02:33 Phenol Throat [place] 177 Ml MM Q2HR PRN Throat Pain Prednisone 40 mg 02/23/25 09:00 02/25/25 08:44 Prednisone 20 Mg Tablet PO 02/27/25 08:01 40 mg DAILYWM [facility] Administration Quetiapine Fumarate 25 mg 02/23/25 16:40 Quetiapine 25 Mg Tablet PO HS PRN Agitation Throat Lozenges 1 lozenge 02/23/25 02:33 Benzocaine/Menthol Lozenge MM Q2HR PRN Throat pain Witch Deanne/Glycerin 1 pad 02/23/25 02:33 Witch Deanne/Glycerin 1 Pad TOP PRN PRN ITCHING Objective Vital Signs/Intake & Output Reviewed Vital Signs: Yes Vital Signs: Vital Signs x48h Temp Pulse Pulse Resp BP Pulse Ox O2 Flow Rate 02/25/25 09:00 36.5 C 66 20 162/92 H 95 2 02/25/25 08:56 162 H 02/25/25 05:27 36.6 C 74 20 171/90 H 96 2 Intake & Output: Intake & Output 02/22/25 02/23/25 02/24/25 02/25/25 23:59 23:59 23:59 23:59 Intake Total 3118 / 3118 3033 / 3033 1775 / 177 Balance 3118 / 3118 3033 / 3033 177 / 177 Weight (kg) 72.575 kg 73 kg Objective General Appearance: positive No acute distress and Other (Frail-appearing) Eyes Bilateral: positive Conjunctivae nml Respiratory: positive Chest non-tender, No respiratory distress, Wheezes and Rhonchi (especially RLL); negative Rales Cardiovascular: positive No murmur and No gallop; negative Regular rate & rhythm (Rate controlled, irregular rhythm) or Friction rub Peripheral Pulses: 2+: Radial (R), 2+: Radial (L), 2+: Dorsalis pedis (R) and 2+: Dorsalis pedis (L) Back: positive Nml inspection Skin: positive Color nml Extremities: positive No pedal edema Neurologic/Psychiatric: positive Oriented x3 and Mood/affect nml; negative Facial droop Lab Results 02/25/25 05:42 02/25/25 05:42 Other Labs: Lab Results x24hrs 02/25/25 02/24/25 Range/Units 05:42 09:25 WBC 13.6 H 15.5 H (4.8-10.8) x10^3/uL RBC 3.85 L 3.69 L (4.70-6.10) 10^6/uL Hgb 11.7 L 11.2 L (14.0-18.0) g/dL Hct 37.0 L 35.6 L (42.0-52.0) % MCV 96.1 H 96.5 H (80.0-94.0) fL MCH 30.4 30.4 (27.0-31.0) pg MCHC 31.6 L 31.5 L (32.0-36.0) g/dL RDW 12.4 12.4 (12.0-15.0) % Plt Count 428 405 (130-450) 10^3/uL MPV 8.9 9.0 (7.4-11.4) fL Neut # (Auto) 9.8 H 11.8 H (1.5-6.6) 10^3/uL Lymph # (Auto) 2.8 2.5 (1.5-3.5) 10^3/uL [place] # (Auto) 0.8 0.9 (0.0-1.0) 10^3/uL Eos # (Auto) 0.1 0.1 (0.0-0.7) 10^3/uL Baso # (Auto) 0.0 0.1 (0.0-0.1) 10^3/uL Absolute Nucleated RBC 0.00 0.00 x10^3/uL Nucleated RBC % 0.0 0.0 /100WBC Sodium 139 141 (135-145) mmol/L Potassium 4.1 3.5 (3.5-4.5) mmol/L Chloride 102 102 (101-111) mmol/L Carbon Dioxide 34 H 33 H (21-32) mmol/L Anion Gap 3.0 L 6.0 (6-13) BUN 15 13 (6-20) mg/dL Creatinine 0.9 0.8 (0.6-1.3) mg/dL Estimated GFR (MDRD) 81 L 92 (>89) Glucose 125 H 171 H (74-104) mg/dL Calcium 8.8 8.6 (8.5-10.3) mg/dL Diagnostic Imaging Diagnostic Imaging Results: positive Final report reviewed Assessment/Plan Problem List (1) Acute and chronic respiratory failure: Impression: Pt on 2L O2 and satting at 98% on 02/24. Pt not on O2 at home. Ok to wean off O2. - Wean O2 as tolerated, goal saturation 88 to 92% given evidence of chronic retention (2) Aspiration pneumonia: Impression: Zane Bautista is a 84 year old male with a history of pleural effusion, nicotine dependence, COPD, and paroxsymal Afib that was admitted on 02/23 for COPD exacerbation. Patient presents with history of dysphagia and clear signs of dysphagia as below. On presentation, he had increased dyspnea, increased sputum production, increased sputum purulence. He has been making a lot of sputum since admission. WBC down from yesterday (15.5 to 13.6) Hemoglobin 11.7. Platelets 428. Metabolic panel is normal, 02/23 transaminases were low. 02/23 albumin 2.8. 02/23 TSH 5.27. Negative viral respiratory panel. 02/22 CXR impression: "Small left effusion and diffuse consolidation favoring pulmonary edema over pneumonia" 02/[address] impression: "Consolidation and tree-in-bud nodules bilaterally dependently suggestive of aspiration or possibly endobronchial spread of infection. Loculated left pleural effusion. Partially imaged infrarenal abdominal aortic aneurysm." Given clear consolidation on CXR started on ceftriaxone and metronidazole by admitting doc. Metronidazole discontinued 02/23. Azithromycin started 02/23. Switched ceftriaxone to ampicillin-sulbactam d/t 15.5 WBC on 02/24. - Continue ampicillin-sulbactam 3g IV q6hrs - Continue Azithromycin 500 mg IV daily til 02/25 (3) Chronic obstructive pulmonary disease, unspecified: Impression: He has a history of COPD that is managed with albuterol PRN and ipratropium- albuterol BID inhalers. Gold criteria no longer supports EDDIE-LIZBETH use outside the hospital setting. Start to switch patient to [id number] (ex. fluticasone [id number]) BID and LIZBETH PRN inhalers. Not on oxygen at baseline contrary to prior reports. He is on 2 L O2 this admission. Will treat with pulse of steroids, prednisone 40 mg x 5 days. Current IP inhalers: ipratropium-albuterol (DuoNeb) BID and albuterol PRN. No flutter valve is available, we have a percussive vest, but patient is clearing secretions appropriately - Wean O2 as tolerated, goal saturation 88 to 92% given evidence of chronic retention - Continue prednisone 40 mg til 02/27 - Continue suction as needed Qualifiers: COPD type: chronic bronchitis Chronic bronchitis type: simple Q ualified Code(s): J41.0 - Simple chronic bronchitis (4) Dysphagia: Impression: He is presenting with presumed aspiration pneumonia as above. Speech therapy saw him on 02/23, he has clear signs of aspiration. Patient is decisional and opts for compassionate feeding, appropriate per his condition, states good understanding of risk Appreciate BRICKLAYER HELPER recommendations MD has tried to reach his family for further discussion about this, but they did not answer Would not recommend a feeding tube given his history of confusion and agitation - Continue compassionate feeding, minced/moist diet (5) Adult failure to thrive: (6) Opioid dependence: Impression: Patient previously on hospice for unclear diagnosis. He was eventually discharged from hospice in September 2024 without a demonstrable loss of weight. Unclear what diagnosis initially landed him with hospice. He has had a recurrent diagnosis of failure to thrive in the adult. Multiple falls. He eventually moved in with his grandchildren. Unfortunately patient was started on lorazepam and morphine when he was admitted to hospice. Some clear evidence of deconditioning and muscle weakness. Likely some malnutrition. He has temporal wasting. Decreased muscle mass. - PT/OT to evaluate - Eager to discuss with family, regarding his overall goals of care - Scheduled melatonin every 24 hours at 1900 - Continue as needed morphine 10 mg every 4 hours - Continue as needed 0.5mg p.o. lorazepam - Continue as needed [employer] quetiapine 12.5-25mg (7) Parkinsonism, unspecified: Impression: Per history. He does not have any clear symptoms of parkinsonism. No trauma that I can account for. He is not on any treatment for parkinsonism prior to this. He has some mention in his outpatient notes of this being diagnosed at the [facility]. Unclear if this may have been triggered by a particular medication or temporary process. (8) Paroxysmal atrial fibrillation: Impression: Rate controlled. Patient with a longstanding history of paroxysmal atrial fibrillation Previously was on anticoagulation, but this was stopped due to frequent falls several months ago. Prior to his enrollment in hospice. Patient is at risk for stroke given atrial fibrillation and no anticoagulation. - Continue to monitor - Rate controlled at this time, avoiding starting any other rate control medications. (9) Hypothyroidism, unspecified: Impression: Historically has been well-controlled on 25 to 50 mcg of levothyroxine. His prior TSH levels have been somewhat elevated historically, goal TSH should be 4- 8 and otherwise asymptomatic patient given age and atrial fibrillation history per [place] [employer]. TSH this admission 5.3 - Continue T4 at 50 mcg every morning Qualifiers: Hypothyroidism type: acquired Qualified Code(s): E03.9 - Hypothyroidism, unspecified
--- NOTE | 2025-02-25 14:10 | Discharge Summary ---
<Statement entered by Bassem James, DO - 02/25/25 17:16> I was present with the [employer] student on the hospitalist service. I personally verified the history of present illness and performed the physical examination and medical decision making. I have verified the students documentation for this encounter and agree with the plan of care below. In addition this is an 84-year-old male with a past medical history of of COPD, known dysphagia who presented with acute hypoxemic respiratory failure in the setting of aspiration pneumonia exacerbating COPD. He has an interesting history of being recently enrolled in hospice for failure to thrive. He was released from hospice in September of this year after there was no qualifying diagnosis found. He has actually been faring rather well at home and has good supports with his family. They are able to care for him well and he has been gaining weight since he has been living with them and relying on their cooking. Unfortunately his COPD is not optimally managed. He is only on schedule DuoNebs at home and apparently does them quite frequently. He has never been on a maintenance inhaler. His daughter is somewhat frustrated about this. He has a longstanding history of aspiration, of unclear etiology. No previous stroke. This may be related to a diagnosis of parkinsonism in the past, but of unclear etiology. The speech-language therapist saw him during this hospitalization and did recommend ongoing [employer] treatments at home. PT has seen him and given his constellation of supports at home he is safe to discharge to that environment. I have ordered for him home health with PT, [employer], OT, shelter, social work to come see him. I think the family benefit from the supports. He should follow-up with his primary care soon, his daughter is working on getting him in with a new primary care doctor possibly over the next few weeks. He will complete a 5-day course of antibiotics with Augmentin and complete a 5- day pulse of oral prednisone for his aspiration pneumonia and COPD exacerbation. For his underlying COPD, I have started him on Stiolto for maintenance inhaler, and encouraged him to continue on this. No clear indication for ICS at this time. Eos 2-300. Patient would benefit from referral to palliative care at some point in the future, unfortunately I did not have an opportunity to meet with his family and have a full discussion about this during his hospitalization. They are linda and helping support him through this at this time, but they could use any supports that are available. I placed a referral to palliative care. Discharge Summary Admit Date: 02/23/25 Discharge Date: 02/25/25 Discharging Provider: Reji James DO Primary Care Provider: Dawood Suero MD Code Status: Do Not Attempt Resuscitation Discharge Facility Name: Home DIAGNOSES Discharge Diagnoses with Status of Each Condition: Acute and chronic respiratory failure: COPD exacerbation: Patient required 2L on admission, now back to RA. His cough improved and decreased sputum. Improved on prednisone burst and duoneb BID. And treatment as below. Prior to this patient is just on duonebs at home and using multiple times per day per his daughter. - Start Stiolto inhaler BID - Complete short course of prednisone 40mg daily through 02/27 - Monitor home O2 sat, goal of 88-92% on RA - Follow-up with PCP Aspiration pneumonia: CT Chest with contrast showed small left effusion and diffuse consolidation and tree-in-bud nodules suggestive of aspiration pneumonia per radiology. Started ceftriaxone and metronidazole 02/22 in the ED. Metronidazole stopped 02/23 Sputum culture and MRSA nares was not obtained. Blood cx remained negative. Patient was continued on ceftriaxone and given short course of azithromycin (02/23-02/25) for coverage of atypicals. Given persistently rising leukocytosis and unchanged oxygen requirements, patient was transition to Unasyn for broader coverage. His leukocytosis and oxygen requirements responded to this. - Complete antibiotic course with ampicillin-sulbactam. Dysphagia: Parkinsonism, unspecified: Speech therapy saw him on 02/23 and determined he has clear signs of aspiration. Pt opted for compassionate feeding. Pt put on puree diet. Per history he has a Parkinson's diagnosis from the [facility]. He does not have any clear symptoms of Parkinsonism and was not on any treatment for Parkinsonism prior to this admission. - Continue Pured diet patient's preference - I would not recommend a feeding tube in this person given his overall goals of care. - Referral for home health for speech therapy placed Adult failure to thrive: Opioid dependence: Patient previously on hospice, But was discharged with no qualifying diagnosis. He was not demonstrating ongoing weight loss and was discharged from hospice in September of this year. He has had a recurrent diagnosis of failure to thrive in the adult. Multiple falls. Demonstrates evidence of deconditioning and muscle weakness and decreased muscle mass. PT/OT evaluated and determined pt would actually benefit from a shelter facility versus home with adequate supports. In discussion with his daughter, it sounds like their goal is to keep him home and they have made great strides to accommodate that. - Referral for home health physical therapy placed Paroxysmal atrial fibrillation: Patient with a longstanding history of paroxysmal atrial fibrillation. Stable during course of admission. Hypothyroidism, unspecified: Well-controlled on 50 mcg of levothyroxine. GOALS OF CARE Patient tells me during this hospitalization that he wants to go home. He does not want to come back to the hospital. He has previously been on hospice as above. I do think he may benefit from hospice, but would need a qualifying diagnosis. His COPD is not necessarily end-stage. Overall it is reasonable to keep him home though and manage him palliatively, though unfortunate that this cannot be done with hospice support. - I have placed a referral for palliative care, called the patient's daughter on 02/26 and described palliative care and gave them the contact number for [facility] - Patient is DNR/DNI, has [employer] already on file and at home. HPI History of Present Illness: pt with h/o parkinson's, adult ftt, copd on chronic home O2 @ 2L via [place], presents with grandson with worsening weakness, congestion, sob. pt does have his own own but grandson helps take care of him. though pt has fallen in the past, no new falls reported. he was seen @ pcp's office and was told that his respiratory function is getting worse. no chest pain. no n/v/d. no LOC. no new neuro deficits. productive cough as well with clearish-yellow sputum along with runny nose. HOSPITAL COURSE Hospital Course: Zane Bautista is a 84 year old male with a history of COPD, dysphagia, and adult failure to thrive who presented to the ER with persistent shortness of breath and upper chest congestion. He reported feeling like his COPD was has been much worse the last couple days. His initial vitals showed hypertension 185/98 and O2 Sat 88% that improved with 2L O2 via nasal cannula in the ER. PE revealed inspiratory crackles and wheezes in all lung ernst. His viral respiratory panel was negative. Chest XR and CT were ordered and showed small left effusion and diffuse consolidation and tree-in-bud nodules suggestive of aspiration pneumonia. He was admitted for COPD exacerbation accompanied by aspiration pneumonia. Given patient's history of dysphagia and adult failure to thrive, patient was evaluated by ST and PT. They recommended that given the patient's apparent weakness, he should pursue home health. Given clear consolidation on CXR started on ceftriaxone and metronidazole by admitting doc. He was also started on breathing treatments of duonebs BID. Metronidazole stopped 02/23 and a 3-day course of azithromycin was added for coverage of atypicals. During his time in the hospital, his sputum production and purulence increased. On 02/24, ceftriaxone was broadened to ampicillin- sulbactam for coverage of PsA given persistent leukocytosis. On 02/25 WBC count is downtrending and patient has been successfully weaned off O2. His O2 on RA is 93%. Will complete a pulsed dose of steroids for COPD exacerbation. Will complete 5 days of coverage with extended spectrum Beta-lactam/beta-lactamase inhibitor for aspiration pneumonia. For COPD maintainance, he is being discharged with a LAMA-LABA inhaler per GOLD criteria. ALLERGIES Allergies Allergy/AdvReac Type Severity Reaction Status Date / Time No Known Drug Allergies Allergy Verified 02/22/25 21:31 MEDICATIONS Ambulatory Orders Medication Instructions Recorded Confirmed Permanent Disabled Placard #1 ea 04/27/24 02/15/25 acetaminophen 500 mg tablet 1,000 mg PO DAILY PRN feve r or pain 05/26/24 02/23/25 Nebulizer with Adult Mask 10/13/24 02/15/25 Hospital Bed #1 ea 11/29/24 02/15/25 albuterol sulfate 90 mcg/actuation 2 puff inhalation Q ID PRN 01/03/25 02/23/25 aerosol inhaler (Ventolin HFA) shortness of breath or wheezing #8.5 grams ipratropium 0.5 mg-albuterol 3 mg 3 ml inhalation BID #180 mL 01/03/25 02/23/25 (2.5 mg base)/3 mL nebulization soln lorazepam 0.5 mg tablet 0.5 mg PO BID PRN agitation #60 02/07/25 02/23/25 tabs levothyroxine 50 mcg tablet 50 mcg PO DAILY 02/23/25 1 (Synthroid) melatonin 5 mg tablet,immediate 5 mg PO HS PRN sleep 1 02/23/25 and extended release quetiapine 25 mg tablet (Seroquel) 75 mg PO HS PRN marti tation 02/23/25 02/23/25 Augmentin 875 mg-potassium 1 tab PO BID #8 tabs clavulanate 125 mg tablet Lactobacillus rhamnosus GG 10 1 cap PO DAILY #9 caps 1 billion cell capsule (Culturelle) fluticasone propionate 50 2 spray intranasal DAILY #16 grams 02/25/25 mcg/actuation nasal spray,suspension prednisone 20 mg tablet 40 mg (2 x 20 mg) PO DAILYWM 3 02/25/25 days #6 tabs tiotropium 2.5 mcg-olodaterol 2.5 2 puff inhalation DA ABEL #4 grams 02/25/25 mcg/actuation mist for inhalation (Stiolto Respimat) PHYSICAL EXAM AT DISCHARGE Vital Signs: Vital Signs x48h Temp Pulse Resp BP Pulse Ox 02/25/25 13:00 36.5 C 67 20 143/79 H 93 General Appearance: positive No acute distress and Alert Eyes Bilateral: positive Conjunctivae nml Respiratory: positive Chest non-tender, No respiratory distress, Wheezes and Other (Cough); negative Breath sounds nml, Rales or Rhonchi Cardiovascular: positive Regular rate & rhythm, No murmur and No gallop; negative Friction rub Peripheral Pulses: positive 2+ Skin: positive Color nml Extremities: positive Non-tender, No pedal edema and Other (Healed bypass scar present on LLE. Some ecchymoses and lacerations present on LLE that have been there since admission) Neurologic/Psychiatric: positive Oriented x3 LABS 02/25/25 05:42 02/25/25 05:42 DIAGNOSTIC IMAGING Diagnostic Imaging Results: Final report reviewed FOLLOW UP Follow Up: Referral sent to palliative care Follow-up with PCP in next 1 to 2 weeks Consider follow-up with pulmonology depending on patient's goals of care for further optimization of his COPD. Home health referral sent for ongoing PT/OT/[employer]. TIME SPENT Time Spent in Discharge (Minutes): 52 Discharge Plan Discharge Patient Disposition: Home, Self Care Condition: Stable Medically Cleared Date:: 02/25/25 Prescriptions: New amoxicillin-pot clavulanate 875-125 mg tablet 1 tab PO BID Qty: 8 0RF fluticasone propionate 50 mcg/actuation [place],Suspension 2 spray intranasal DAILY Qty: 16 0RF Culturelle 10 billion cell Capsule 1 cap PO DAILY Qty: 9 0RF prednisone 20 mg Tablet 40 mg PO DAILYWM 3 Days Qty: 6 0RF Stiolto Respimat 2.5-2.5 mcg/actuation mist 2 puff inhalation DAILY Qty: 4 0RF Continued (DME) Hospital Bed Device See Rx Instructions .Route Qty: 1 0RF Rx Instructions: As directed lorazepam 0.5 mg tablet 0.5 mg PO BID PRN (Reason: agitation) Qty: 60 2RF Patient Comments: Takes 0.5mg before bed, 0.5mg in the daytime PRN for agitation (DME) Nebulizer with Adult Mask See Rx Instructions .Route .MEDSUPPLY Rx Instructions: Will need ordered per PCP upon discharge from Hospice services quetiapine [Seroquel] 25 mg tablet 75 mg PO HS MDD 75 mg PRN (Reason: agitation) Patient Comments: Family states 75mg Rx Instructions: 50 to 75 mg by mouth orally bedtime PRN; melatonin 5 mg tablet, IR and ER, biphasic 5 mg PO HS PRN (Reason: sleep) levothyroxine [Synthroid] 50 mcg tablet 50 mcg PO DAILY acetaminophen 500 mg tablet 1,000 mg PO DAILY PRN (Reason: fever or pain) (DME) Permanent Disabled [facility] See Rx Instructions .ROUTE .MEDSUPPLY Qty: 1 0RF Rx Instructions: As directed ipratropium-albuterol 0.5 mg-3 mg(2.5 mg base)/3 mL solution for nebulization 3 ml inhalation BID Qty: 180 6RF albuterol sulfate [Ventolin HFA] 90 mcg/actuation HFA aerosol inhaler 2 puff inhalation QID PRN (Reason: shortness of breath or wheezing) Qty: 8.5 3RF Activity Restrictions: Activity as Tolerated Diet: Regular Health Concerns: You were admitted for worsening shortness of breath requiring oxygen, you are found to have a pneumonia, likely from aspirating on your food. This triggered a COPD exacerbation. The treatments for these are steroids for the COPD exacerbation antibiotics for the aspiration pneumonia. In addition you were seen by the physical therapist and speech-language pathologist while you are here, they are recommending ongoing home therapy, which I have ordered. Medications: * Amoxicillin-clavulanate:Take as prescribed to complete the full course. Do not skip doses, and finish the medication even if you feel better. * Steroid pulse (e.g., prednisone):Take as directed, usually for 3-7 days. Do not stop steroids abruptly unless instructed. * Inhalers:You have been prescribed a daily maintenance inhaler for your COPD, continue using this daily, work with your doctor to further optimize your COPD treatment. Symptoms to Watch For: * Worsening shortness of breath, chest pain, or difficulty breathing * High fever (over 101F/38.3C) or shaking chills * Coughing up blood or large amounts of sputum * Confusion, severe weakness, or inability to eat/drink If any of these occur, seek medical attention immediately. Activity: * Rest as needed, but try to move around several times a day to prevent blood clots and help your lungs recover.[1] * Gradually increase activity as tolerated. Hydration and Nutrition: * Drink plenty of fluids. * Eat small, frequent meals if you feel tired or have a poor appetite. Follow-Up: * Schedule a follow-up appointment with your primary care provider or supervisor drapery hanging within 1-2 weeks, or sooner if symptoms worsen. * If you use home oxygen, continue as prescribed and monitor your oxygen saturation if you have a home monitor. Preventive Measures: * Avoid smoking and exposure to secondhand smoke. * Get recommended vaccines (influenza, pneumococcal, COVID-19, RSV) if not already up to date. * Practice good hand hygiene to reduce infection risk. Other Instructions: * Take all medications as prescribed and do not make changes without consulting your healthcare provider. * If you have any questions about your medications or symptoms, contact your healthcare team. Emergency:Call 911 or go to the emergency department if you experience severe difficulty breathing, chest pain, confusion, or cannot stay awake. Print Language: Divehi Patient Instructions: COPD: Using Inhalers Follow-up Care: Dawood Suero MD [Primary Care Provider, Family Practice] Vitals documented within 30 minutes of discharge?: Yes
[2025-02-25 18:52] VITALS: TEMP 98.6
[2025-02-25 18:54] VITALS: BP 123/75; O2SAT 91
== END 2025-02-25 17:45 | disposition home health service (06) | DRG 177 ==
LOC: ED 21:22 → SUATTDRO 02-23 01:43 → MS2 02-23 01:43
PROVIDERS: ADMIT Student in an Organized Health Care Education/Training Program; ATTEND Student in an Organized Health Care Education/Training Program
DX: R62.7 Adult failure to thrive; R13.10 Dysphagia, unspecified; J44.1 Chronic obstructive pulmonary disease with (acute) exacerbation; R29.6 Repeated falls; J69.0 Pneumonitis due to inhalation of food and vomit; Z66 Do not resuscitate; I71.43 Infrarenal abdominal aortic aneurysm, without rupture; F41.9 Anxiety disorder, unspecified; Z68.22 Body mass index [BMI] 22.0-22.9, adult; Z79.890 Hormone replacement therapy; J44.9 Chronic obstructive pulmonary disease, unspecified; J96.21 Acute and chronic respiratory failure with hypoxia; Z95.0 Presence of cardiac pacemaker; F11.20 Opioid dependence, uncomplicated; Z63.4 Disappearance and death of family member; J96.20 Acute and chronic respiratory failure, unspecified whether with hypoxia or hypercapnia; I10 Essential (primary) hypertension; E78.5 Hyperlipidemia, unspecified; G20.A1 Parkinson's disease without dyskinesia, without mention of fluctuations; E03.9 Hypothyroidism, unspecified; I48.0 Paroxysmal atrial fibrillation; Z11.52 Encounter for screening for COVID-19; Z79.899 Other long term (current) drug therapy; Z87.891 Personal history of nicotine dependence; I49.5 Sick sinus syndrome; Z91.85 Personal history of military service